=== PATIENT | male | born 1955 | race Caucasian/White ===

== ENCOUNTER 2017-08-26 15:46 | Emergency (ER) | payer OTHER, MEDICAID ==
[~2017-08-26] VITALS: Ht 182.9 cm; Wt 110.2 kg
[2017-08-26] MEDS ORDERED: HYDROmorphone inj. 0.5 MG/0.5 ML DISP.SYRIN IM ONE (16:45)
[2017-08-26] MEDS ORDERED: HYDROcodone/acetaminophen 10/325mg tab PO ONE (17:00)
[2017-08-26] MEDS ORDERED: HYDR-3965 PO (17:20)
[2017-08-26 17:49] VITALS: BP 133/68
[2017-08-27] MEDS ORDERED: PER10325T PO (17:44)
== END 2017-08-26 17:52 | disposition home or self-care (01) ==
LOC: ER 15:47
DX: S52.101A Unspecified fracture of upper end of right radius, initial encounter for closed fracture (principal); S52.201A Unspecified fracture of shaft of right ulna, initial encounter for closed fracture; I50.9 Heart failure, unspecified; J44.9 Chronic obstructive pulmonary disease, unspecified; F17.200 Nicotine dependence, unspecified, uncomplicated; Z88.0 Allergy status to penicillin; W22.8XXA Striking against or struck by other objects, initial encounter; Y93.89 Activity, other specified; Y92.89 Other specified places as the place of occurrence of the external cause; Y99.8 Other external cause status
CPT/HCPCS: 29105; 73060; 73070; 73090; 73110; 96372; 99284; A4565; J1170

== ENCOUNTER 2017-08-31 10:20 | Outpatient (CLI) | payer MEDICAID ==
[~2017-08-31] VITALS: Ht 185.4 cm; Wt 111.8 kg
[2017-08-31 10:20] VITALS: BP 118/82
[~2017-08-31 10:20] MED LIST: HYDR-3965 PO; PER10325T PO
== END 2017-08-31 11:00 | disposition home or self-care (01) ==
LOC: ORTHO 10:20
PROVIDERS: ATTEND Nurse Practitioner Family
DX: S52.391A Other fracture of shaft of radius, right arm, initial encounter for closed fracture (principal); S52.221A Displaced transverse fracture of shaft of right ulna, initial encounter for closed fracture; F41.9 Anxiety disorder, unspecified; H40.9 Unspecified glaucoma; I50.9 Heart failure, unspecified; J44.9 Chronic obstructive pulmonary disease, unspecified; F12.90 Cannabis use, unspecified, uncomplicated; F17.210 Nicotine dependence, cigarettes, uncomplicated; Z88.0 Allergy status to penicillin; Z56.0 Unemployment, unspecified; X58.XXXA Exposure to other specified factors, initial encounter; Y93.89 Activity, other specified; Y92.89 Other specified places as the place of occurrence of the external cause; Y99.8 Other external cause status
CPT/HCPCS: 99215

== ENCOUNTER 2017-09-16 14:12 | Outpatient (CLI) | payer MEDICAID ==
[~2017-09-16 14:12] MED LIST changes: +ALBU18HF2 INH; +FLUT1DIS INH
== END 2017-09-16 15:10 | disposition home or self-care (01) ==
LOC: ORTHO 14:12
PROVIDERS: ATTEND Nurse Practitioner Family
DX: S52.321D Displaced transverse fracture of shaft of right radius, subsequent encounter for closed fracture with routine healing (principal); S52.221D Displaced transverse fracture of shaft of right ulna, subsequent encounter for closed fracture with routine healing; J44.9 Chronic obstructive pulmonary disease, unspecified; F17.210 Nicotine dependence, cigarettes, uncomplicated; I50.9 Heart failure, unspecified; F12.90 Cannabis use, unspecified, uncomplicated; Z88.0 Allergy status to penicillin; Z56.0 Unemployment, unspecified; X58.XXXD Exposure to other specified factors, subsequent encounter
CPT/HCPCS: 29105; 99213

== ENCOUNTER 2017-09-23 10:51 | Outpatient (CLI) | payer MEDICAID ==
[2017-09-23 10:59] VITALS: BP 122/65
== END 2017-09-23 11:50 | disposition home or self-care (01) ==
LOC: ORTHO 10:51
PROVIDERS: ATTEND Nurse Practitioner Family
DX: S52.341 Displaced spiral fracture of shaft of radius, right arm (principal); S52.24 Spiral fracture of shaft of ulna; F17.210 Nicotine dependence, cigarettes, uncomplicated; I50.9 Heart failure, unspecified; J44.9 Chronic obstructive pulmonary disease, unspecified; Z88.0 Allergy status to penicillin; X58.XXXD Exposure to other specified factors, subsequent encounter
CPT/HCPCS: 29065; 99214; A4590; A6449

== ENCOUNTER 2017-10-03 23:54 | Inpatient (IN) | payer MEDICAID ==
[~2017-10-03] VITALS: Ht 185.4 cm; Wt 105.5 kg
[~2017-10-03 23:54] MED LIST changes: -HYDR-3965 PO; -PER10325T PO; +flumazenil 0.1 mg/ml inj. IV ONE
[2017-10-04] VITALS (18 sets, daily range): BP systolic 81–114; BP diastolic 51–73
[2017-10-04] MEDS ORDERED: ipratropium/albuterol 3ml nebule NEB ONE ×2 (01:20→04:00)
[2017-10-04] MEDS ORDERED: LORazepam 1 MG tablet PO ONE (01:20)
[2017-10-04 03:24] LABS: BASOPHILS # (AUTO) 0.1 X10'3 (0-0.2); BASOPHILS % (AUTO) 0.5 % (0-1); EOSINOPHILS % (AUTO) 0.3 % (0-6); HEMATOCRIT 47.9 % (42.0-52.0); HEMOGLOBIN 15.7 g/dl (14.0-17.9); LYMPHOCYTES # (AUTO) 1.4 X10'3 (1.1-4.8); LYMPHOCYTES % (AUTO) 7.7 % (21-51); MEAN CORPUSCULAR HEMOGLOBIN 28.9 PG (27.0-31.0); MEAN CORPUSCULAR HGB CONC 32.8 % (33.0-36.5); MEAN CORPUSCULAR VOLUME 88.1 FL (78-98); MEAN PLATELET VOLUME 7.7 FL (7.4-10.4); MONOCYTES # (AUTO) 0.8 X10'3 (0-0.9); MONOCYTES % (AUTO) 4.5 % (2-12); NEUTROPHILS # (AUTO) 15.7 X10'3 (1.8-7.7); PLATELET COUNT 356 X10'3 (140-440); RED BLOOD COUNT 5.43 X10'6 (4.70-6.10); RED CELL DISTRIBUTION WIDTH 15.6 % (11.5-14.5); WHITE BLOOD COUNT 18.1 X10'3 (4.5-11.0)
[2017-10-04 03:40] LABS: ALANINE AMINOTRANSFERASE 29 U/L (12-78); ALBUMIN 3.3 G/DL (3.4-5.0); ALBUMIN/GLOBULIN RATIO 0.8 (1.1-1.5); ALKALINE PHOSPHATASE 149 IU/L (46-116); ANION GAP 9 (8-16); ASPARTATE AMINO TRANSFERASE 16 U/L (10-37); BILIRUBIN,TOTAL 0.4 MG/DL (0.1-1.0); BLOOD UREA NITROGEN 21 MG/DL (7-18); BUN/CREATININE RATIO 17.9 (5.4-32.0); CHLORIDE 105 MMOL/L (99-107); CREATININE 1.17 MG/DL (0.60-1.10); GLUCOSE 101 MG/DL (70-104); POTASSIUM 3.9 MMOL/L (3.5-5.1); SODIUM 141 MMOL/L (135-145); TOTAL CARBON DIOXIDE 26.9 MMOL/L (24-32); TOTAL PROTEIN 7.6 G/DL (6.4-8.2); eGFR 63 ML/MIN
[2017-10-04] MEDS ORDERED: methylPREDNISolone sod succ 125mg/2ml vial IV ONE (04:00)
[2017-10-04] MEDS ORDERED: levoFLOXACIN-Levaquin 750MG/D5 150 ML IV ONE (04:00)
[2017-10-04] MEDS ORDERED: ondansetron/PF 4mg/2ml inj IV PRN ×2 (04:55→08:55)
[2017-10-04] MEDS ORDERED: potassium Cl 40MEQ/NS 500ml 500 ML IV PRN ×2 (04:55)
[2017-10-04] MEDS ORDERED: acetaminophen 325mg tablet PO PRN ×3 (04:55→08:55)
[2017-10-04] MEDS ORDERED: HYDROcodone/acetaminophen 5mg/325mg tablet PO PRN (04:55)
[2017-10-04] MEDS ORDERED: potassium Cl 20 mEq SR tablet PO PRN ×2 (04:55)
[2017-10-04] MEDS ORDERED: albuterol 2.5 MG/3 ML nebule NEB PRN (04:55)
[2017-10-04] MEDS ORDERED: LORazepam 2 mg/ml vial IV ONE ×2 (04:55→09:10)
[2017-10-04] MEDS ORDERED: flumazenil 0.1 mg/ml inj. IV ONE (05:30)
[2017-10-04 05:41] LABS: ABG BASE EXCESS -2.6 mmol/L (-2.0-3.0); ABG HCO3 27.7 mmol/L (22.0-26.0); ABG PCO2 (T) 73.7 mmHg (35.0-48.0); ABG PH (T) 7.193 (7.350-7.450); ABG PO2 (T) 92.1 mmHg (83-108); FCOHb 1.8 % (0.5-1.5); FLOW 6 L/min; FMetHb 0.3 % (0.3-1.12); RESPIRATORY RATE (OBSERVED) 8 b/min; TOTAL HEMOGLOBIN 15.9 G/dl (14.0-18.0)
[2017-10-04] MEDS: normal saline 1000ml 1,000 ML IV SCH (06:01)
[2017-10-04] MEDS: ipratropium/albuterol 3ml nebule NEB SCH ×5 (07:18→23:10)
[2017-10-04] MEDS: K and/or MAG REPLACEMENT MC SCH (08:00)
[2017-10-04] MEDS ORDERED: rocuronium 10mg/ml inj IV ONE (08:00)
[2017-10-04] MEDS ORDERED: etomidate 2mg/ml inj. ONE (08:00)
[2017-10-04 08:26] LABS: ABG BASE EXCESS 0.1 mmol/L (-2.0-3.0); ABG HCO3 27.2 mmol/L (22.0-26.0); ABG OXYGEN SATURATION 93.4 % (95-98); ABG PCO2 (T) 53.3 mmHg (35.0-48.0); ABG PH (T) 7.326 (7.350-7.450); ABG PO2 (T) 73.9 mmHg (83-108); ALLEN'S TEST Positive; FCOHb 1.8 % (0.5-1.5); FMetHb 0.1 % (0.3-1.12); FO2Hb 91.6 % (94-100); MINUTE VOLUME 14 L/min; PEEP 5 cm H2O; RESPIRATORY RATE 20 b/min; RESPIRATORY RATE (OBSERVED) 20 b/min; TIDAL VOLUME 600 mL; TOTAL HEMOGLOBIN 16.3 G/dl (14.0-18.0)
[2017-10-04] MEDS: methylPREDNISolone sod succ 125mg/2ml vial IV SCH ×2 (08:36→16:09)
[2017-10-04] MEDS: heparin, porcine 5000 units/ml vial SQ SCH ×2 (08:40→21:10)
[2017-10-04] MEDS: nicotine 21mg patch - 24 hr TD SCH (08:41)
[2017-10-04] MEDS ORDERED: magnesium hydroxide 30ml (MOM) UD suspension PO PRN (08:55)
[2017-10-04] MEDS ORDERED: metoclopramide 5 mg/ml inj IV PRN (08:55)
[2017-10-04] MEDS ORDERED: morphine 4 MG/ML inj SYRINge IV PRN ×2 (08:55)
[2017-10-04] MEDS ORDERED: ipratropium/albuterol 3ml nebule NEB PRN (08:55)
[2017-10-04 09:09] LABS: URINE AMPHETAMINE SCREEN POSITIVE (Neg); URINE BARBITUATE SCREEN NEGATIVE (Neg); URINE BENZODIAZEPINES SCREEN NEGATIVE (Neg); URINE CANNABINOID SCREEN NEGATIVE (Neg); URINE COCAINE SCREEN NEGATIVE (Neg); URINE METHADONE SCREEN NEGATIVE (Neg); URINE OPIATE SCREEN POSITIVE (Neg); URINE PHENCYCLIDINE SCREEN NEGATIVE (Neg)
[2017-10-04] MEDS ORDERED: phenytoin sod 50mg/ml 2ml vial IV SCH (09:10)
[2017-10-04] MEDS: propofol 1000mg/100ml bottle 100 ML IV PRN ×3 (09:13→23:14)
[2017-10-04 09:20] LABS: CLARITY,URINE SLIGHTLY CLOUDY (Clear); COLOR,URINE YELLOW (Yellow); GLUCOSE, URINE NEGATIVE (Neg); KETONES,URINE NEGATIVE (Neg); LEUKOCYTE ESTERASE ,URINE NEGATIVE (Neg); NITRITES, URINE NEGATIVE (Neg); OCCULT BLOOD,URINE TRACE-INTACT (Neg); PROTEIN,URINE NEGATIVE (Neg); UROBILINOGEN,URINE 0.2 E.U/dL (0.2-1.0)
[2017-10-04 09:26] LABS: UA COLLECTION TYPE FOLEY CATH
[2017-10-04 09:28] LABS: HYALINE CASTS 0-3 /LPF (NEGATIVE); MUCUS STRANDS FEW /LPF (Neg); RENAL CELLS, URINE FEW /HPF; SQUAMOUS EPITHELIAL CELL,UR FEW /LPF (FEW); TRANSITIONAL EPI CELLS,URINE FEW /HPF
[2017-10-04 09:29] LABS: BACTERIA,URINE NONE SEEN /HPF (Neg); RBC,URINE 0-2 /HPF (0-2); WBC,URINE 0-4 /HPF (0-4)
[2017-10-04] MEDS ORDERED: iohexol 300mg/ml 100ml inj. ONE (09:44)
[2017-10-04] MEDS ORDERED: NORMAL SALINE IV ONE (09:45)
[2017-10-04] MEDS ORDERED: PHENYTOIN SOD IV ONE (09:45)
[2017-10-04 09:47] LABS: MAGNESIUM 2.2 MG/DL (1.5-2.4)
[2017-10-04] MEDS ORDERED: NS IV ONE (10:00)
[2017-10-04] MEDS ORDERED: FOSPHENYTOIN IV ONE (10:00)
[2017-10-04] MEDS: budesonide 0.5mg/2ml UD nebule IH SCH ×2 (10:32→19:10)
[2017-10-04 11:47] LABS: INR 1.1 INR; PARTIAL THROMBOPLASTIN TIME 27 SECONDS (22-32); PROTHROMBIN TIME 11.3 SECONDS (9.0-12.0)
[2017-10-04] MEDS: CefTRIAXone 2gm/D5W 50ml 50 ML IV SCH (11:56)
[2017-10-04] MEDS: pantoprazole 40 MG vial IV SCH (11:57)
[2017-10-04] MEDS: enoxaparin 40mg/0.4ml syringe SUBCUT SCH (11:57)
[2017-10-04] MEDS: sodium chloride 0.45% 1,000 ML IV SCH ×2 (11:57→23:14)
[2017-10-04 15:34] LABS: GLUCOSE,CSF 101 MG/DL (40-75); TOTAL PROTEIN,CSF 79 MG/DL (30-60)
[2017-10-04 15:49] LABS: HIV ANTIBODY 1&2 RAPID NON-REACTIVE (Neg)
[2017-10-04 16:25] LABS: LYMPHOCYTES,CSF 3 % (40-80); MONOCYTES,CSF 1 % (15-45); NEUTRO,CSF 96 % (0-6)
[2017-10-04 16:30] LABS: APPEARANCE,CSF CLEAR; CSF RBC 40 /CU MM (0); CSF SUPERNATANT COLOR COLORLESS; CSF WBC CT 1 /CU MM (0-5); TUBE# COUNTED 4
[2017-10-04 16:32] LABS: APPEARANCE,CSF SL BLOODY
[2017-10-04 16:33] LABS: CSF SUPERNATANT COLOR PINK; TUBE# COUNTED 1
[2017-10-04 16:35] LABS: CSF RBC 28000 /CU MM (0); CSF WBC CT 53 /CU MM (0-5)
[2017-10-04] MEDS ORDERED: phenytoin sod ER 100mg capsule PO SCH (21:00)
[2017-10-05] VITALS (23 sets, daily range): BP systolic 90–119; BP diastolic 46–72
[2017-10-05] MEDS: phenytoin sod 50mg/ml 2ml vial IV SCH ×3 (00:11→16:27)
[2017-10-05] MEDS: methylPREDNISolone sod succ 125mg/2ml vial IV SCH ×3 (00:11→16:27)
[2017-10-05] MEDS: normal saline 1000ml 1,000 ML IV SCH ×2 (01:45→20:22)
[2017-10-05] MEDS: ipratropium/albuterol 3ml nebule NEB SCH ×6 (03:04→23:17)
[2017-10-05 03:19] LABS: BASOPHILS % (AUTO) 0.1 % (0-1); EOSINOPHILS # (AUTO) 0.2 X10'3 (0-0.9); EOSINOPHILS % (AUTO) 1.2 % (0-6); HEMATOCRIT 43.8 % (42.0-52.0); HEMOGLOBIN 14.6 g/dl (14.0-17.9); LYMPHOCYTES # (AUTO) 0.8 X10'3 (1.1-4.8); LYMPHOCYTES % (AUTO) 4.1 % (21-51); MEAN CORPUSCULAR HEMOGLOBIN 28.9 PG (27.0-31.0); MEAN CORPUSCULAR HGB CONC 33.3 % (33.0-36.5); MEAN CORPUSCULAR VOLUME 86.8 FL (78-98); MEAN PLATELET VOLUME 8.2 FL (7.4-10.4); MONOCYTES # (AUTO) 0.4 X10'3 (0-0.9); MONOCYTES % (AUTO) 2.1 % (2-12); NEUTROPHILS # (AUTO) 17.1 X10'3 (1.8-7.7); NEUTROPHILS % (AUTO) 92.5 % (42-75); PLATELET COUNT 294 X10'3 (140-440); RED BLOOD COUNT 5.05 X10'6 (4.70-6.10); RED CELL DISTRIBUTION WIDTH 15.2 % (11.5-14.5); WHITE BLOOD COUNT 18.5 X10'3 (4.5-11.0)
[2017-10-05 03:21] LABS: ABG BASE EXCESS 2.2 mmol/L (-2.0-3.0); ABG HCO3 26.8 mmol/L (22.0-26.0); ABG PCO2 (T) 41.9 mmHg (35.0-48.0); ABG PH (T) 7.425 (7.350-7.450); ABG PO2 (T) 64.7 mmHg (83-108); ALLEN'S TEST Positive; FCOHb 0.5 % (0.5-1.5); FO2Hb 91.5 % (94-100); MINUTE VOLUME 13 L/min; PATIENT TEMPERATURE 37.1; PEEP 5 cm H2O; RESPIRATORY RATE 20 b/min; RESPIRATORY RATE (OBSERVED) 20 b/min; TIDAL VOLUME 600 mL; TOTAL HEMOGLOBIN 15.1 G/dl (14.0-18.0)
[2017-10-05 03:32] LABS: INR 1.1 INR; PARTIAL THROMBOPLASTIN TIME 26 SECONDS (22-32); PROTHROMBIN TIME 11.2 SECONDS (9.0-12.0)
[2017-10-05 03:40] LABS: ALANINE AMINOTRANSFERASE 23 U/L (12-78); ALBUMIN 2.8 G/DL (3.4-5.0); ALBUMIN/GLOBULIN RATIO 0.7 (1.1-1.5); ALKALINE PHOSPHATASE 124 IU/L (46-116); ANION GAP 6 (8-16); ASPARTATE AMINO TRANSFERASE 11 U/L (10-37); BILIRUBIN,TOTAL 0.4 MG/DL (0.1-1.0); BLOOD UREA NITROGEN 21 MG/DL (7-18); BUN/CREATININE RATIO 18.8 (5.4-32.0); CHLORIDE 103 MMOL/L (99-107); CREATININE 1.12 MG/DL (0.60-1.10); GLUCOSE 152 MG/DL (70-104); MAGNESIUM 2.1 MG/DL (1.5-2.4); PHENYTOIN (DILANTIN) 7.1 UG/ML (10.0-20.0); PHOSPHORUS 4.1 MG/DL (2.3-4.5); POTASSIUM 4.5 MMOL/L (3.5-5.1); SODIUM 139 MMOL/L (135-145); TOTAL CARBON DIOXIDE 30.4 MMOL/L (24-32); TOTAL PROTEIN 6.7 G/DL (6.4-8.2); eGFR 67 ML/MIN
[2017-10-05 03:53] LABS: CHOL/HDL RATIO 3.6 (0.00-4.99); CHOLESTEROL 174 MG/DL (0-200); HDL CHOLESTEROL 49 MG/DL (35-60); LDL CHOLESTEROL 100 MG/DL (50-100); TRIGLYCERIDES 130 MG/DL (20-135)
[2017-10-05] MEDS: propofol 1000mg/100ml bottle 100 ML IV PRN ×2 (04:38→12:34)
[2017-10-05] MEDS: budesonide 0.5mg/2ml UD nebule IH SCH ×2 (07:00→19:16)
[2017-10-05] MEDS: K and/or MAG REPLACEMENT MC SCH (08:00)
[2017-10-05] MEDS: pantoprazole 40 MG vial IV SCH (08:13)
[2017-10-05] MEDS: CefTRIAXone 2gm/D5W 50ml 50 ML IV SCH (08:13)
[2017-10-05] MEDS: nicotine 21mg patch - 24 hr TD SCH (08:14)
[2017-10-05] MEDS: enoxaparin 40mg/0.4ml syringe SUBCUT SCH (08:14)
[2017-10-05 08:42] LABS: TROPONIN I 0.37 NG/ML (0.0-0.05)
[2017-10-05] MEDS: levoFLOXACIN-Levaquin 750MG/D5 150 ML IV SCH (09:53)
[2017-10-05] MEDS: sodium chloride 0.45% 1,000 ML IV SCH ×2 (11:33→20:22)
[2017-10-06] VITALS (24 sets, daily range): BP systolic 100–140; BP diastolic 60–90
[2017-10-06] MEDS: ipratropium/albuterol 3ml nebule NEB SCH ×6 (00:10→20:47)
[2017-10-06] MEDS: methylPREDNISolone sod succ 125mg/2ml vial IV SCH ×3 (00:17→17:33)
[2017-10-06] MEDS: phenytoin sod 50mg/ml 2ml vial IV SCH ×2 (00:17→08:21)
[2017-10-06 04:06] LABS: ABG BASE EXCESS 3.8 mmol/L (-2.0-3.0); ABG HCO3 28.6 mmol/L (22.0-26.0); ABG OXYGEN SATURATION 90.2 % (95-98); ABG PCO2 (T) 43.5 mmHg (35.0-48.0); ABG PH (T) 7.436 (7.350-7.450); ABG PO2 (T) 60.4 mmHg (83-108); ALLEN'S TEST Positive; FCOHb 0.3 % (0.5-1.5); FMetHb 0.2 % (0.3-1.12); FO2Hb 89.7 % (94-100); MINUTE VOLUME 9 L/min; PEEP 5 cm H2O; RESPIRATORY RATE 20 b/min; RESPIRATORY RATE (OBSERVED) 25 b/min; TIDAL VOLUME 600 mL; TOTAL HEMOGLOBIN 15.4 G/dl (14.0-18.0)
[2017-10-06 05:25] LABS: PARTIAL THROMBOPLASTIN TIME 22 SECONDS (22-32); PROTHROMBIN TIME 10.7 SECONDS (9.0-12.0)
[2017-10-06 05:56] LABS: ALANINE AMINOTRANSFERASE 19 U/L (12-78); ALBUMIN 2.7 G/DL (3.4-5.0); ALBUMIN/GLOBULIN RATIO 0.7 (1.1-1.5); ALKALINE PHOSPHATASE 118 IU/L (46-116); ANION GAP 9 (8-16); ASPARTATE AMINO TRANSFERASE 7 U/L (10-37); BILIRUBIN,TOTAL 0.3 MG/DL (0.1-1.0); BLOOD UREA NITROGEN 21 MG/DL (7-18); BUN/CREATININE RATIO 18.8 (5.4-32.0); CALCIUM 8.8 MG/DL (8.5-10.1); CHLORIDE 100 MMOL/L (99-107); CREATININE 1.12 MG/DL (0.60-1.10); GLUCOSE 160 MG/DL (70-104); MAGNESIUM 2.1 MG/DL (1.5-2.4); PHENYTOIN (DILANTIN) 5.9 UG/ML (10.0-20.0); PHOSPHORUS 3.7 MG/DL (2.3-4.5); POTASSIUM 4.2 MMOL/L (3.5-5.1); SODIUM 138 MMOL/L (135-145); TOTAL PROTEIN 6.7 G/DL (6.4-8.2); eGFR 67 ML/MIN
[2017-10-06 06:13] LABS: BASOPHILS % (AUTO) 0 % (0-1); EOSINOPHILS # (AUTO) 0.1 X10'3 (0-0.9); EOSINOPHILS % (AUTO) 0.7 % (0-6); HEMATOCRIT 44.1 % (42.0-52.0); HEMOGLOBIN 14.8 g/dl (14.0-17.9); LYMPHOCYTES # (AUTO) 0.7 X10'3 (1.1-4.8); LYMPHOCYTES % (AUTO) 4.3 % (21-51); MEAN CORPUSCULAR HGB CONC 33.5 % (33.0-36.5); MEAN CORPUSCULAR VOLUME 86.5 FL (78-98); MEAN PLATELET VOLUME 8.3 FL (7.4-10.4); MONOCYTES # (AUTO) 0.4 X10'3 (0-0.9); MONOCYTES % (AUTO) 2.7 % (2-12); NEUTROPHILS # (AUTO) 14.2 X10'3 (1.8-7.7); NEUTROPHILS % (AUTO) 92.3 % (42-75); PLATELET COUNT 253 X10'3 (140-440); RED CELL DISTRIBUTION WIDTH 15.9 % (11.5-14.5); WHITE BLOOD COUNT 15.4 X10'3 (4.5-11.0)
[2017-10-06] MEDS: propofol 1000mg/100ml bottle 100 ML IV PRN (06:36)
[2017-10-06] MEDS: budesonide 0.5mg/2ml UD nebule IH SCH ×2 (07:53→20:47)
[2017-10-06] MEDS: nicotine 21mg patch - 24 hr TD SCH (08:00)
[2017-10-06] MEDS: K and/or MAG REPLACEMENT MC SCH (08:00)
[2017-10-06] MEDS: pantoprazole 40 MG vial IV SCH (08:21)
[2017-10-06] MEDS: levoFLOXACIN-Levaquin 750MG/D5 150 ML IV SCH (08:22)
[2017-10-06] MEDS: CefTRIAXone 2gm/D5W 50ml 50 ML IV SCH (08:22)
[2017-10-06] MEDS: enoxaparin 40mg/0.4ml syringe SUBCUT SCH (08:22)
[2017-10-06] MEDS: sodium chloride 0.45% 1,000 ML IV SCH (17:33)
[2017-10-06] MEDS: normal saline 1000ml 1,000 ML IV SCH (17:50)
[2017-10-06] MEDS ORDERED: temazepam 15mg capsule PO ONE (20:30)
[2017-10-06] MEDS: lactobacillus rhamnosus 10,000 MMU CELLS/CAPSULE PO SCH (20:33)
[2017-10-07] VITALS (11 sets, daily range): BP systolic 118–141; BP diastolic 75–92
[2017-10-07] MEDS: methylPREDNISolone sod succ 125mg/2ml vial IV SCH ×2 (01:02→07:49)
[2017-10-07] MEDS: ipratropium/albuterol 3ml nebule NEB SCH ×3 (03:24→11:00)
[2017-10-07 05:25] LABS: BASOPHILS % (AUTO) 0.1 % (0-1); EOSINOPHILS % (AUTO) 0 % (0-6); HEMATOCRIT 47.9 % (42.0-52.0); HEMOGLOBIN 15.6 g/dl (14.0-17.9); LYMPHOCYTES # (AUTO) 0.5 X10'3 (1.1-4.8); LYMPHOCYTES % (AUTO) 4.2 % (21-51); MEAN CORPUSCULAR HEMOGLOBIN 28.5 PG (27.0-31.0); MEAN CORPUSCULAR HGB CONC 32.6 % (33.0-36.5); MEAN CORPUSCULAR VOLUME 87.5 FL (78-98); MEAN PLATELET VOLUME 8.7 FL (7.4-10.4); MONOCYTES # (AUTO) 0.3 X10'3 (0-0.9); MONOCYTES % (AUTO) 2.6 % (2-12); NEUTROPHILS # (AUTO) 11.9 X10'3 (1.8-7.7); NEUTROPHILS % (AUTO) 93.1 % (42-75); PLATELET COUNT 293 X10'3 (140-440); RED BLOOD COUNT 5.48 X10'6 (4.70-6.10); RED CELL DISTRIBUTION WIDTH 15.5 % (11.5-14.5); WHITE BLOOD COUNT 12.8 X10'3 (4.5-11.0)
[2017-10-07 05:38] LABS: PARTIAL THROMBOPLASTIN TIME 25 SECONDS (22-32); PROTHROMBIN TIME 10.5 SECONDS (9.0-12.0)
[2017-10-07 05:53] LABS: ALANINE AMINOTRANSFERASE 22 U/L (12-78); ALBUMIN 2.8 G/DL (3.4-5.0); ALBUMIN/GLOBULIN RATIO 0.7 (1.1-1.5); ALKALINE PHOSPHATASE 119 IU/L (46-116); ANION GAP 7 (8-16); ASPARTATE AMINO TRANSFERASE 11 U/L (10-37); BILIRUBIN,TOTAL 0.3 MG/DL (0.1-1.0); BLOOD UREA NITROGEN 20 MG/DL (7-18); BUN/CREATININE RATIO 20.6 (5.4-32.0); CALCIUM 8.7 MG/DL (8.5-10.1); CHLORIDE 101 MMOL/L (99-107); CREATININE 0.97 MG/DL (0.60-1.10); GLUCOSE 149 MG/DL (70-104); MAGNESIUM 2.1 MG/DL (1.5-2.4); PHENYTOIN (DILANTIN) 3.6 UG/ML (10.0-20.0); PHOSPHORUS 3.6 MG/DL (2.3-4.5); POTASSIUM 4.6 MMOL/L (3.5-5.1); PREALBUMIN 23.8 MG/DL (19-36); SODIUM 138 MMOL/L (135-145); TOTAL CARBON DIOXIDE 30.1 MMOL/L (24-32); TOTAL PROTEIN 7.1 G/DL (6.4-8.2); eGFR 79 ML/MIN
[2017-10-07] MEDS: budesonide 0.5mg/2ml UD nebule IH SCH (07:33)
[2017-10-07] MEDS: CefTRIAXone 2gm/D5W 50ml 50 ML IV SCH (07:48)
[2017-10-07] MEDS: lactobacillus rhamnosus 10,000 MMU CELLS/CAPSULE PO SCH (07:49)
[2017-10-07] MEDS: pantoprazole 40 MG vial IV SCH (07:49)
[2017-10-07] MEDS: nicotine 21mg patch - 24 hr TD SCH (07:50)
[2017-10-07] MEDS: enoxaparin 40mg/0.4ml syringe SUBCUT SCH (07:52)
[2017-10-07] MEDS: levoFLOXACIN-Levaquin 750MG/D5 150 ML IV SCH (08:11)
[2017-10-07] MEDS ORDERED: LEVO750T46 PO (11:16)
[2017-10-07 19:12] LABS: HSV 1 PCR Negative (Negative); HSV 2 PCR Negative (Negative)
[2017-10-08] MEDS ORDERED: levoFLOXACIN 750MG TABLET PO SCH (11:00)
[2017-10-08 13:37] LABS: CRYPTOCOCCUS ANTIGEN, CSF Negative (Negative)
[2017-10-09] MEDS ORDERED: methylnaltrexone br 12mg/0.6ml inj***SubQ only SQ SCH (08:00)
== END 2017-10-07 13:16 | disposition home or self-care (01) | DRG 133 ==
LOC: ER 23:55 → ED HOLD 10-04 04:52 → ICU 2S 10-04 10:16
PROVIDERS: ADMIT Family Medicine; ATTEND Internal Medicine Critical Care Medicine
PROC: 5A09357 Assistance with Respiratory Ventilation, Less than 24 Consecutive Hours, Continuous Positive Airway Pressure (ICD-10-PCS; principal; 2017-10-04)
PROC: 5A1945Z Respiratory Ventilation, 24-96 Consecutive Hours (ICD-10-PCS; 2017-10-04)
PROC: 0BH17EZ Insertion of Endotracheal Airway into Trachea, Via Natural or Artificial Opening (ICD-10-PCS; 2017-10-04)
PROC: 4A10X4Z Monitoring of Central Nervous Electrical Activity, External Approach (ICD-10-PCS; 2017-10-05)
DX: J96.22 Acute and chronic respiratory failure with hypercapnia (principal); G93.6 Cerebral edema; J14 Pneumonia due to Hemophilus influenzae; I50.9 Heart failure, unspecified; J84.9 Interstitial pulmonary disease, unspecified; Z99.81 Dependence on supplemental oxygen; J44.1 Chronic obstructive pulmonary disease with (acute) exacerbation; J96.91 Respiratory failure, unspecified with hypoxia; N28.9 Disorder of kidney and ureter, unspecified; F17.210 Nicotine dependence, cigarettes, uncomplicated; G25.3 Myoclonus; G47.30 Sleep apnea, unspecified; R63.3 Feeding difficulties; F12.90 Cannabis use, unspecified, uncomplicated; F41.9 Anxiety disorder, unspecified; T43.625A Adverse effect of amphetamines, initial encounter; J44.0 Chronic obstructive pulmonary disease with (acute) lower respiratory infection; J96.21 Acute and chronic respiratory failure with hypoxia; Z82.49 Family history of ischemic heart disease and other diseases of the circulatory system; Y92.89 Other specified places as the place of occurrence of the external cause; Z88.0 Allergy status to penicillin
CPT/HCPCS: 36415; 36600; 70470; 71045; 80053; 80061; 80185; 80305; 81001; 82803; 82945; 82948; 83605; 83735; 83880; 84100; 84134; 84145; 84157; 84443; 84484; 85018; 85025; 85610; 85730; 86703; 86788; 86789; 87015; 87040; 87070; 87077; 87102; 87185; 87502; 87503; 87529; 87899; 89051; 92616; 93005; 93306; 94002; 94003; 94640; 94660; 94668; 94760; 95816; 96365; 96375; 97116; 97161; 97530; 99291; A6213; A7015; C1758; C9113; J0696; J1165; J1644; J1650; J1956; J2060; J2704; J2930; J3490; J7030; J7626; Q9967

== ENCOUNTER 2017-10-13 10:30 | Outpatient (CLI) | payer MEDICAID ==
[~2017-10-13 10:30] MED LIST changes: +LEVO750T46 PO; -flumazenil 0.1 mg/ml inj. IV ONE
[2017-10-13 10:46] VITALS: BP 125/71
== END 2017-10-13 11:50 | disposition home or self-care (01) ==
LOC: ORTHO 10:30
PROVIDERS: ATTEND Nurse Practitioner Family
DX: S52.341 Displaced spiral fracture of shaft of radius, right arm (principal); S52.24 Spiral fracture of shaft of ulna; F17.210 Nicotine dependence, cigarettes, uncomplicated; G25.3 Myoclonus; I50.9 Heart failure, unspecified; J44.9 Chronic obstructive pulmonary disease, unspecified; F12.90 Cannabis use, unspecified, uncomplicated; Z88.0 Allergy status to penicillin; X58.XXXD Exposure to other specified factors, subsequent encounter
CPT/HCPCS: 29075; 73090; 99213; A4590

== ENCOUNTER 2017-11-03 10:27 | Outpatient (CLI) | payer MEDICAID ==
[2017-11-03 10:42] VITALS: BP 124/64
== END 2017-11-03 11:27 | disposition home or self-care (01) ==
LOC: ORTHO 10:27
PROVIDERS: ATTEND Nurse Practitioner Family
DX: S52.341 Displaced spiral fracture of shaft of radius, right arm (principal); S52.24 Spiral fracture of shaft of ulna; I50.9 Heart failure, unspecified; J44.9 Chronic obstructive pulmonary disease, unspecified; F17.210 Nicotine dependence, cigarettes, uncomplicated; G25.3 Myoclonus; Z88.0 Allergy status to penicillin; Z91.19 Patient's noncompliance with other medical treatment and regimen; X58.XXXD Exposure to other specified factors, subsequent encounter
CPT/HCPCS: 73090; 99213; A4590

== ENCOUNTER 2017-11-24 09:58 | Outpatient (CLI) | payer MEDICAID ==
[2017-11-24 09:55] VITALS: BP 134/85
== END 2017-11-24 10:40 | disposition home or self-care (01) ==
LOC: ORTHO 09:58
PROVIDERS: ATTEND Nurse Practitioner Family
DX: S52.341 Displaced spiral fracture of shaft of radius, right arm (principal); S52.24 Spiral fracture of shaft of ulna; J44.9 Chronic obstructive pulmonary disease, unspecified; F17.210 Nicotine dependence, cigarettes, uncomplicated; F12.90 Cannabis use, unspecified, uncomplicated; G25.3 Myoclonus; I50.9 Heart failure, unspecified; Z88.0 Allergy status to penicillin; X58.XXXD Exposure to other specified factors, subsequent encounter
CPT/HCPCS: 73090; 99212

== ENCOUNTER 2019-04-27 06:34 | Emergency (ER) | payer MEDICAID ==
[~2019-04-27] VITALS: Ht 182.9 cm; Wt 113.6 kg
[2019-04-27] MEDS ORDERED: normal saline 1000ML IV soln IVB ONE (06:50)
[2019-04-27] MEDS ORDERED: ipratropium 0.5 MG/2.5ML nebule IH ONE (06:50)
[2019-04-27] MEDS ORDERED: methylPREDNISolone sod succ 125mg/2ml vial IV ONE (06:50)
[2019-04-27] MEDS ORDERED: albuterol 2.5 MG/3 ML nebule CONTNEB PRN (06:50)
[2019-04-27 07:00] LABS: BASOPHILS % (AUTO) 0.3 % (0-1); EOSINOPHILS # (AUTO) 0.1 X10'3 (0-0.9); EOSINOPHILS % (AUTO) 0.4 % (0-6); HEMATOCRIT 46.5 % (42.0-52.0); HEMOGLOBIN 15.6 g/dl (14.0-17.9); LYMPHOCYTES # (AUTO) 0.6 X10'3 (1.1-4.8); LYMPHOCYTES % (AUTO) 4.4 % (21-51); MEAN CORPUSCULAR HEMOGLOBIN 30.4 PG (27.0-31.0); MEAN CORPUSCULAR HGB CONC 33.7 g/dL (33.0-36.5); MEAN CORPUSCULAR VOLUME 90.3 FL (78-98); MONOCYTES % (AUTO) 6.7 % (2-12); NEUTROPHILS # (AUTO) 12.9 X10'3 (1.8-7.7); NEUTROPHILS % (AUTO) 88.2 % (42-75); PLATELET COUNT 324 X10'3 (140-440); RED BLOOD COUNT 5.14 X10'6 (4.70-6.10); RED CELL DISTRIBUTION WIDTH 13.8 % (11.5-14.5); WHITE BLOOD COUNT 14.6 X10'3 (4.5-11.0)
[2019-04-27] MEDS ORDERED: TIOT4MIS5 IH (07:12)
[2019-04-27] MEDS ORDERED: BUDE10.2 INH (07:12)
[2019-04-27 07:16] LABS: ALANINE AMINOTRANSFERASE 36 U/L (12-78); ALBUMIN/GLOBULIN RATIO 0.6 (1.1-1.5); ALKALINE PHOSPHATASE 144 IU/L (46-116); ANION GAP 7 (8-16); ASPARTATE AMINO TRANSFERASE 23 U/L (10-37); BILIRUBIN,TOTAL 0.7 MG/DL (0.1-1.0); BLOOD UREA NITROGEN 11 MG/DL (7-18); BUN/CREATININE RATIO 10.2 (5.4-32.0); CALCIUM 8.8 MG/DL (8.5-10.1); CHLORIDE 98 MMOL/L (99-107); CREATININE 1.08 MG/DL (0.60-1.10); GLUCOSE 180 MG/DL (70-104); POTASSIUM 4.3 MMOL/L (3.5-5.1); SODIUM 134 MMOL/L (135-145); TOTAL CARBON DIOXIDE 28.9 MMOL/L (24-32); TOTAL PROTEIN 8.1 G/DL (6.4-8.2); eGFR 69 ML/MIN
[2019-04-27 07:40] LABS: ABG BASE EXCESS 1.6 mmol/L (-2.0-3.0); ABG HCO3 27.2 mmol/L (22.0-26.0); ABG OXYGEN SATURATION 93.3 % (95-98); ABG PCO2 (T) 45.9 mmHg (35.0-45.0); ABG PO2 (T) 64.8 mmHg (83-108); ALLEN'S TEST Positive; FCOHb 1.5 % (0.5-1.5); FLOW 5 L/min; FMetHb 0.1 % (0.3-1.12); FO2Hb 91.8 % (94-100)
[2019-04-27 08:13] VITALS: BP 117/96
== END 2019-04-27 08:10 | disposition left against medical advice (07) ==
LOC: ER 06:35
DX: J44.1 Chronic obstructive pulmonary disease with (acute) exacerbation (principal); R06.03 Acute respiratory distress; F15.90 Other stimulant use, unspecified, uncomplicated; I50.9 Heart failure, unspecified; G47.30 Sleep apnea, unspecified; F41.9 Anxiety disorder, unspecified; F17.200 Nicotine dependence, unspecified, uncomplicated; F12.90 Cannabis use, unspecified, uncomplicated; Z56.0 Unemployment, unspecified; Z88.0 Allergy status to penicillin; Z79.899 Other long term (current) drug therapy
CPT/HCPCS: 36415; 36600; 71045; 80053; 82803; 84484; 85018; 85025; 93005; 94640; 94644; 94760; 96374; 99285; J2930; J7040

== ENCOUNTER 2020-07-28 08:52 | Inpatient (IN) | payer MEDICAID ==
[~2020-07-28] VITALS: Ht 182.9 cm; Wt 113.6 kg
[~2020-07-28 08:52] MED LIST changes: +BUDE10.2 INH; -FLUT1DIS INH; -LEVO750T46 PO; +TIOT4MIS5 IH
[2020-07-28] MEDS ORDERED: albuterol 2.5 MG/3 ML nebule NEB ONE (09:00)
[2020-07-28] MEDS ORDERED: methylPREDNISolone sod succ 125mg/2ml vial IV ONE (09:00)
[2020-07-28] MEDS ORDERED: ipratropium/albuterol 3ml nebule NEB ONE (09:00)
--- NOTE | 2020-07-28 09:14 | NUR ---
RT at bedside for neb tx and bipap.
[2020-07-28 09:25] LABS: BASOPHILS # (AUTO) 0.1 X10'3 (0-0.2); BASOPHILS % (AUTO) 0.4 % (0-1); EOSINOPHILS # (AUTO) 0.1 X10'3 (0-0.9); EOSINOPHILS % (AUTO) 0.5 % (0-6); HEMATOCRIT 48.2 % (42.0-52.0); HEMOGLOBIN 15.8 g/dl (14.0-17.9); LYMPHOCYTES # (AUTO) 0.7 X10'3 (1.1-4.8); LYMPHOCYTES % (AUTO) 4.8 % (21-51); MEAN CORPUSCULAR HEMOGLOBIN 29.7 PG (27.0-31.0); MEAN CORPUSCULAR HGB CONC 32.8 g/dL (33.0-36.5); MEAN CORPUSCULAR VOLUME 90.5 FL (78-98); MEAN PLATELET VOLUME 8.2 FL (7.4-10.4); MONOCYTES # (AUTO) 0.9 X10'3 (0-0.9); MONOCYTES % (AUTO) 6.3 % (2-12); PLATELET COUNT 340 X10'3 (140-440); RED BLOOD COUNT 5.33 X10'6 (4.70-6.10); RED CELL DISTRIBUTION WIDTH 14.5 % (11.5-14.5); WHITE BLOOD COUNT 14.8 X10'3 (4.5-11.0)
[2020-07-28] MEDS ORDERED: levoFLOXACIN-Levaquin 750MG/D5 150 ML IV ONE (09:40)
--- NOTE | 2020-07-28 09:43 | NUR ---
NO G PER DR. HICKS AFTER PLACEMENT ON BIPAP Addendum: 07/28/20 at 0943 by Camille MCCULLOUGH Amended: Links added.
[2020-07-28 09:45] LABS: ALANINE AMINOTRANSFERASE 39 U/L (12-78); ALBUMIN 3.1 G/DL (3.4-5.0); ALBUMIN/GLOBULIN RATIO 0.6 (1.1-1.5); ALKALINE PHOSPHATASE 125 IU/L (46-116); ANION GAP 6 (8-16); ASPARTATE AMINO TRANSFERASE 29 U/L (10-37); BILIRUBIN,TOTAL 0.8 MG/DL (0.1-1.0); BLOOD UREA NITROGEN 16 MG/DL (7-18); BUN/CREATININE RATIO 13.8 (5.4-32.0); CHLORIDE 98 MMOL/L (99-107); CREATININE 1.16 MG/DL (0.60-1.10); GLUCOSE 152 MG/DL (70-104); POTASSIUM 4.4 MMOL/L (3.5-5.1); SODIUM 135 MMOL/L (135-145); TOTAL PROTEIN 8.5 G/DL (6.4-8.2); eGFR 63 ML/MIN
[2020-07-28 09:47] LABS: ETHANOL < 0.010 GM/DL (0.0-0.010)
[2020-07-28] MEDS ORDERED: hydrOXYzine 25 MG tablet PO ONE (10:15)
[2020-07-28] MEDS ORDERED: HYDR-3686 PO (10:36)
--- NOTE | 2020-07-28 10:46 | NUR ---
Pt removed from bipap and placed on NC at 3L which he is usually on at home. Pt feeling better. Pt states O2 sat usually in upper 80"s.
[2020-07-28 11:27] LABS: ABG BASE EXCESS 2.5 mmol/L (-2.0-2.0); ABG HCO3 28.4 mmol/L (22.0-26.0); ABG OXYGEN SATURATION 86.6 % (94-97); ABG PCO2 (T) 48.1 mmHg (35.0-48.0); ABG PO2 (T) 51.3 mmHg (75.0-100.0); ALLEN'S TEST POSITIVE; FLOW 3 L/min; FMetHb 0.1 % (0.0-1.5); FO2Hb 85.6 % (94-97); TOTAL HEMOGLOBIN 16.8 G/dl (14.0-18.0)
--- NOTE | 2020-07-28 12:06 | NUR ---
Pt O2 sat dipping to 87%, increased O2 to 5L, MD informed. Pt sat increased to 89-90%.
[2020-07-28] MEDS ORDERED: diphenhydrAMINE 25mg capsule PO PRN (12:25)
[2020-07-28] MEDS: normal saline 1000ml 1,000 ML IV SCH ×2 (12:25→22:28)
[2020-07-28] MEDS ORDERED: magnesium Cl slow-release 64mg tablet PO PRN (12:25)
[2020-07-28] MEDS ORDERED: bisacodyl 10mg suppository rectal RC PRN (12:25)
[2020-07-28] MEDS ORDERED: potassium Cl 20 mEq SR tablet PO PRN ×2 (12:25)
[2020-07-28] MEDS ORDERED: mag hydrox/Alum hydrox/simeth 30ml oral suspension PO PRN (12:25)
[2020-07-28] MEDS ORDERED: HYDROcodone/acetaminophen 10/325mg tab PO PRN (12:25)
[2020-07-28] MEDS ORDERED: magnesium 4gm in 100ml NS 100 ML IV PRN (12:25)
[2020-07-28] MEDS ORDERED: HYDROcodone/acetaminophen 5mg/325mg tablet PO PRN (12:25)
[2020-07-28] MEDS ORDERED: potassium Cl 40MEQ/1/2NS 520ml 520 ML IV PRN ×2 (12:25)
[2020-07-28] MEDS ORDERED: magnesium 2GM in 50ml NS 50 ML IV PRN (12:25)
[2020-07-28] MEDS ORDERED: acetaminophen 325mg tablet PO PRN ×2 (12:25)
[2020-07-28] MEDS ORDERED: magnesium hydroxide 30ml (MOM) UD suspension PO PRN (12:25)
[2020-07-28] MEDS ORDERED: morphine 2 MG/ML inj. syringe IV PRN ×2 (12:25)
[2020-07-28] MEDS ORDERED: acetaminophen 650mg rectal suppository RC PRN (12:25)
[2020-07-28] MEDS ORDERED: iohexol 350MG/ML 100ml bottle IV ONE (12:35)
[2020-07-28 12:57] LABS: HEMOGLOBIN A1C 6.4 % (4.5-6.2)
[2020-07-28 14:30] VITALS: BP 112/91
[2020-07-28 16:00] VITALS: BP 133/76
[2020-07-28] MEDS: methylPREDNISolone sod succ 125mg/2ml vial IV SCH ×2 (16:33→22:13)
[2020-07-28 17:30] VITALS: BP 139/81
[2020-07-28 18:00] VITALS: BP 139/81
--- NOTE | 2020-07-28 18:32 | NUR ---
Problems reprioritized. Patient report given, questions answered & plan of care reviewed with Annabella RODRÍGUEZ. Pt alert, oriented, and in no acute distress.
[2020-07-28] MEDS: ipratropium/albuterol 3ml nebule NEB SCH ×2 (18:55→23:09)
[2020-07-28] MEDS: lactobacillus rhamnosus 10,000 MMU CELLS/CAPSULE PO SCH (20:00)
[2020-07-28] MEDS: K and/or MAG REPLACEMENT MC SCH (20:00)
[2020-07-28] MEDS ORDERED: pantoprazole 40 MG vial IV ONE (20:50)
[2020-07-28 22:00] VITALS: BP 122/75
[2020-07-28] MEDS: heparin, porcine 5000 units/ml vial SQ SCH (22:08)
--- NOTE | 2020-07-28 22:25 | NUR ---
Respiratory Therapy Page Patient is ready to get onto his Bipap machine O2 sat continues to drop in the 80's. Denies SOB.
[2020-07-29 02:00] VITALS: BP 111/85
[2020-07-29] MEDS: methylPREDNISolone sod succ 125mg/2ml vial IV SCH ×4 (02:20→21:31)
[2020-07-29] MEDS: ipratropium/albuterol 3ml nebule NEB SCH ×6 (03:55→23:00)
[2020-07-29 07:00] VITALS: BP 133/73
[2020-07-29 07:11] LABS: ALANINE AMINOTRANSFERASE 34 U/L (12-78); ALBUMIN 2.7 G/DL (3.4-5.0); ALBUMIN/GLOBULIN RATIO 0.5 (1.1-1.5); ALKALINE PHOSPHATASE 116 IU/L (46-116); ANION GAP 5 (8-16); ASPARTATE AMINO TRANSFERASE 15 U/L (10-37); BILIRUBIN,TOTAL 0.3 MG/DL (0.1-1.0); BLOOD UREA NITROGEN 17 MG/DL (7-18); BUN/CREATININE RATIO 15.2 (5.4-32.0); CALCIUM 8.7 MG/DL (8.5-10.1); CHLORIDE 101 MMOL/L (99-107); CHOL/HDL RATIO 3.7 (0.00-4.99); CHOLESTEROL 164 MG/DL (0-200); CREATININE 1.12 MG/DL (0.60-1.10); GLUCOSE 161 MG/DL (70-104); HDL CHOLESTEROL 44 MG/DL (35-60); LDL CHOLESTEROL 111 MG/DL (50-100); MAGNESIUM 2.2 MG/DL (1.5-2.4); PHOSPHORUS 3.4 MG/DL (2.3-4.5); POTASSIUM 4.9 MMOL/L (3.5-5.1); SODIUM 136 MMOL/L (135-145); TOTAL CARBON DIOXIDE 30.1 MMOL/L (24-32); TOTAL PROTEIN 7.7 G/DL (6.4-8.2); TRIGLYCERIDES 69 MG/DL (20-135); eGFR 66 ML/MIN
[2020-07-29 07:12] LABS: BASOPHILS % (AUTO) 0.1 % (0-1); EOSINOPHILS % (AUTO) 0 % (0-6); HEMATOCRIT 46.3 % (42.0-52.0); HEMOGLOBIN 15.3 g/dl (14.0-17.9); LYMPHOCYTES # (AUTO) 0.7 X10'3 (1.1-4.8); LYMPHOCYTES % (AUTO) 6.8 % (21-51); MEAN CORPUSCULAR HEMOGLOBIN 29.7 PG (27.0-31.0); MEAN CORPUSCULAR HGB CONC 32.9 g/dL (33.0-36.5); MEAN CORPUSCULAR VOLUME 90.1 FL (78-98); MEAN PLATELET VOLUME 8.3 FL (7.4-10.4); MONOCYTES # (AUTO) 0.4 X10'3 (0-0.9); MONOCYTES % (AUTO) 3.4 % (2-12); NEUTROPHILS # (AUTO) 9.7 X10'3 (1.8-7.7); NEUTROPHILS % (AUTO) 89.7 % (42-75); PLATELET COUNT 332 X10'3 (140-440); RED BLOOD COUNT 5.14 X10'6 (4.70-6.10); RED CELL DISTRIBUTION WIDTH 14.4 % (11.5-14.5); WHITE BLOOD COUNT 10.8 X10'3 (4.5-11.0)
[2020-07-29] MEDS: K and/or MAG REPLACEMENT MC SCH ×2 (08:00→20:00)
[2020-07-29] MEDS: pantoprazole 40 MG vial IV SCH (08:02)
[2020-07-29] MEDS: levoFLOXACIN-Levaquin 750MG/D5 150 ML IV SCH (08:02)
[2020-07-29] MEDS: lactobacillus rhamnosus 10,000 MMU CELLS/CAPSULE PO SCH ×2 (08:02→21:33)
[2020-07-29] MEDS: heparin, porcine 5000 units/ml vial SQ SCH ×2 (08:03→21:32)
[2020-07-29] MEDS: normal saline 1000ml 1,000 ML IV SCH ×2 (08:05→18:25)
[2020-07-29 11:00] VITALS: BP 120/75
[2020-07-29 15:00] VITALS: BP 143/73
[2020-07-29 18:00] VITALS: BP 139/90
--- NOTE | 2020-07-29 18:37 | NUR ---
Problems reprioritized. Patient report given, questions answered & plan of care reviewed with Sonam RN.
[2020-07-29 22:00] VITALS: BP 142/73
[2020-07-29 22:02] LABS: CLARITY,URINE CLEAR (Clear); COLOR,URINE YELLOW (Yellow); GLUCOSE, URINE NEGATIVE (Neg); KETONES,URINE NEGATIVE (Neg); LEUKOCYTE ESTERASE ,URINE NEGATIVE (Neg); NITRITES, URINE NEGATIVE (Neg); OCCULT BLOOD,URINE NEGATIVE (Neg); PH,URINE 5.5 (4.8-8.0); PROTEIN,URINE NEGATIVE (Neg); UA COLLECTION TYPE CLN CATCH MIDSTREAM; UROBILINOGEN,URINE 0.2 E.U/dL (0.2-1.0)
[2020-07-29 22:16] LABS: URINE AMPHETAMINE SCREEN POSITIVE (Neg); URINE BARBITUATE SCREEN NEGATIVE (Neg); URINE BENZODIAZEPINES SCREEN NEGATIVE (Neg); URINE CANNABINOID SCREEN NEGATIVE (Neg); URINE COCAINE SCREEN NEGATIVE (Neg); URINE METHADONE SCREEN NEGATIVE (Neg); URINE OPIATE SCREEN POSITIVE (Neg); URINE PHENCYCLIDINE SCREEN NEGATIVE (Neg)
[2020-07-30] VITALS (7 sets, daily range): BP systolic 118–153; BP diastolic 47–89
[2020-07-30] MEDS: ipratropium/albuterol 3ml nebule NEB SCH ×6 (02:22→23:19)
[2020-07-30] MEDS: methylPREDNISolone sod succ 125mg/2ml vial IV SCH ×4 (03:08→19:42)
[2020-07-30] MEDS: normal saline 1000ml 1,000 ML IV SCH ×2 (03:11→14:47)
--- NOTE | 2020-07-30 06:25 | NUR ---
Patient in room PCU 3016. I have received report from Sonam RODRÍGUEZ and had the opportunity to ask questions and assume patient care.
[2020-07-30 06:33] LABS: BASOPHILS % (AUTO) 0.1 % (0-1); EOSINOPHILS % (AUTO) 0 % (0-6); HEMATOCRIT 44.2 % (42.0-52.0); HEMOGLOBIN 14.3 g/dl (14.0-17.9); LYMPHOCYTES # (AUTO) 0.7 X10'3 (1.1-4.8); LYMPHOCYTES % (AUTO) 4.9 % (21-51); MEAN CORPUSCULAR HEMOGLOBIN 29.4 PG (27.0-31.0); MEAN CORPUSCULAR HGB CONC 32.5 g/dL (33.0-36.5); MEAN CORPUSCULAR VOLUME 90.5 FL (78-98); MONOCYTES # (AUTO) 0.6 X10'3 (0-0.9); MONOCYTES % (AUTO) 4.2 % (2-12); NEUTROPHILS # (AUTO) 13.5 X10'3 (1.8-7.7); NEUTROPHILS % (AUTO) 90.8 % (42-75); PLATELET COUNT 359 X10'3 (140-440); RED BLOOD COUNT 4.89 X10'6 (4.70-6.10); RED CELL DISTRIBUTION WIDTH 14.5 % (11.5-14.5); WHITE BLOOD COUNT 14.9 X10'3 (4.5-11.0)
[2020-07-30 06:44] LABS: ALANINE AMINOTRANSFERASE 56 U/L (12-78); ALBUMIN 2.7 G/DL (3.4-5.0); ALBUMIN/GLOBULIN RATIO 0.6 (1.1-1.5); ALKALINE PHOSPHATASE 97 IU/L (46-116); ANION GAP 4 (8-16); ASPARTATE AMINO TRANSFERASE 36 U/L (10-37); BILIRUBIN,TOTAL 0.3 MG/DL (0.1-1.0); BLOOD UREA NITROGEN 20 MG/DL (7-18); BUN/CREATININE RATIO 16.8 (5.4-32.0); CHLORIDE 103 MMOL/L (99-107); CREATININE 1.19 MG/DL (0.60-1.10); GLUCOSE 156 MG/DL (70-104); MAGNESIUM 2.3 MG/DL (1.5-2.4); PHOSPHORUS 3.5 MG/DL (2.3-4.5); POTASSIUM 5.4 MMOL/L (3.5-5.1); SODIUM 139 MMOL/L (135-145); TOTAL CARBON DIOXIDE 31.7 MMOL/L (24-32); TOTAL PROTEIN 7.2 G/DL (6.4-8.2); eGFR 62 ML/MIN
[2020-07-30] MEDS: K and/or MAG REPLACEMENT MC SCH ×2 (08:00→20:00)
[2020-07-30] MEDS: levoFLOXACIN-Levaquin 750MG/D5 150 ML IV SCH (08:37)
[2020-07-30] MEDS: lactobacillus rhamnosus 10,000 MMU CELLS/CAPSULE PO SCH ×2 (08:37→19:42)
[2020-07-30] MEDS: pantoprazole 40 MG vial IV SCH (08:37)
[2020-07-30] MEDS: heparin, porcine 5000 units/ml vial SQ SCH ×2 (08:38→19:42)
[2020-07-30] MEDS ORDERED: LORazepam 2 mg/ml vial IV PRN (10:45)
--- NOTE | 2020-07-30 18:29 | NUR ---
Patient in room PCU 3016. I have received report from Ashlie RODRÍGUEZ and had the opportunity to ask questions and assume patient care.
--- NOTE | 2020-07-30 18:30 | NUR ---
Problems reprioritized. Patient report given, questions answered & plan of care reviewed with Levi RODRÍGUEZ.
[2020-07-31] MEDS: normal saline 1000ml 1,000 ML IV SCH ×2 (00:25→10:25)
[2020-07-31] MEDS: methylPREDNISolone sod succ 125mg/2ml vial IV SCH ×3 (01:46→14:08)
[2020-07-31 02:00] VITALS: BP 148/93
[2020-07-31] MEDS: ipratropium/albuterol 3ml nebule NEB SCH ×4 (02:58→15:03)
[2020-07-31 06:00] VITALS: BP_SYST 138; BP_SYST 141; BP_DIAS 73; BP_DIAS 82
[2020-07-31 06:41] LABS: BASOPHILS % (AUTO) 0.2 % (0-1); EOSINOPHILS % (AUTO) 0 % (0-6); HEMATOCRIT 47.2 % (42.0-52.0); HEMOGLOBIN 15.2 g/dl (14.0-17.9); LYMPHOCYTES # (AUTO) 0.6 X10'3 (1.1-4.8); LYMPHOCYTES % (AUTO) 5.4 % (21-51); MEAN CORPUSCULAR HEMOGLOBIN 29.1 PG (27.0-31.0); MEAN CORPUSCULAR HGB CONC 32.3 g/dL (33.0-36.5); MEAN CORPUSCULAR VOLUME 90.3 FL (78-98); MEAN PLATELET VOLUME 8.1 FL (7.4-10.4); MONOCYTES # (AUTO) 0.5 X10'3 (0-0.9); MONOCYTES % (AUTO) 4.4 % (2-12); NEUTROPHILS # (AUTO) 10.1 X10'3 (1.8-7.7); PLATELET COUNT 341 X10'3 (140-440); RED BLOOD COUNT 5.23 X10'6 (4.70-6.10); RED CELL DISTRIBUTION WIDTH 14.5 % (11.5-14.5); WHITE BLOOD COUNT 11.2 X10'3 (4.5-11.0)
[2020-07-31 07:05] LABS: ALANINE AMINOTRANSFERASE 44 U/L (12-78); ALBUMIN 2.7 G/DL (3.4-5.0); ALBUMIN/GLOBULIN RATIO 0.6 (1.1-1.5); ALKALINE PHOSPHATASE 94 IU/L (46-116); ANION GAP 4 (8-16); ASPARTATE AMINO TRANSFERASE 15 U/L (10-37); BILIRUBIN,TOTAL 0.3 MG/DL (0.1-1.0); BLOOD UREA NITROGEN 21 MG/DL (7-18); BUN/CREATININE RATIO 18.9 (5.4-32.0); CALCIUM 8.8 MG/DL (8.5-10.1); CHLORIDE 101 MMOL/L (99-107); CREATININE 1.11 MG/DL (0.60-1.10); GLUCOSE 141 MG/DL (70-104); MAGNESIUM 2.3 MG/DL (1.5-2.4); PHOSPHORUS 3.9 MG/DL (2.3-4.5); POTASSIUM 5.2 MMOL/L (3.5-5.1); SODIUM 138 MMOL/L (135-145); TOTAL CARBON DIOXIDE 32.9 MMOL/L (24-32); TOTAL PROTEIN 7.2 G/DL (6.4-8.2); eGFR 67 ML/MIN
[2020-07-31] MEDS: lactobacillus rhamnosus 10,000 MMU CELLS/CAPSULE PO SCH (07:22)
[2020-07-31] MEDS: levoFLOXACIN-Levaquin 750MG/D5 150 ML IV SCH (07:22)
[2020-07-31] MEDS: pantoprazole 40 MG vial IV SCH (07:22)
[2020-07-31] MEDS: heparin, porcine 5000 units/ml vial SQ SCH (07:29)
[2020-07-31] MEDS: K and/or MAG REPLACEMENT MC SCH (07:29)
[2020-07-31 11:00] VITALS: BP 141/73
[2020-07-31] MEDS ORDERED: sodium polystyrene sulfonate 15gm/60ml oral suspension PO ONE (12:30)
--- NOTE | 2020-07-31 13:17 | NUR ---
pts potassium level came back at 5.2 this morning. MD ordered x1 kayexalate. 15mg oral solution. Pt to discharge later this afternoon
--- NOTE | 2020-07-31 13:19 | NUR ---
Problems reprioritized. Patient report given, questions answered & plan of care reviewed with Bobbi RODRÍGUEZ.
--- NOTE | 2020-07-31 13:30 | NUR ---
Patient in room PCU 3016. I have received report from Levi RODRÍGUEZ and had the opportunity to ask questions and assume patient care.
[2020-07-31] MEDS ORDERED: PANT40TA54 PO (14:22)
[2020-07-31] MEDS ORDERED: LACT1CAP26 PO (14:22)
[2020-07-31] MEDS ORDERED: PRED10TA23 PO (14:22)
[2020-07-31] MEDS ORDERED: LEVO500T89 PO (14:22)
[2020-07-31] MEDS ORDERED: BENZ-16 PO (14:22)
[2020-07-31] MEDS ORDERED: DILT180C66 PO (14:22)
[2020-07-31 15:00] VITALS: BP 128/78
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
== END 2020-07-31 16:55 | disposition home or self-care (01) | DRG 140 ==
LOC: ER 08:52 → ED HOLD 12:25 → EDBEDREQ 13:03 → PCU 3S 14:05
PROVIDERS: ADMIT Family Medicine; ATTEND Family Medicine
PROC: 5A09357 Assistance with Respiratory Ventilation, Less than 24 Consecutive Hours, Continuous Positive Airway Pressure (ICD-10-PCS; principal; 2020-07-28)
PROC: B32T1ZZ Computerized Tomography (CT Scan) of Left Pulmonary Artery using Low Osmolar Contrast (ICD-10-PCS; 2020-07-28)
PROC: B3201ZZ Computerized Tomography (CT Scan) of Thoracic Aorta using Low Osmolar Contrast (ICD-10-PCS; 2020-07-28)
PROC: B32S1ZZ Computerized Tomography (CT Scan) of Right Pulmonary Artery using Low Osmolar Contrast (ICD-10-PCS; 2020-07-28)
PROC: 5A09357 Assistance with Respiratory Ventilation, Less than 24 Consecutive Hours, Continuous Positive Airway Pressure (ICD-10-PCS; 2020-07-29)
PROC: 5A09357 Assistance with Respiratory Ventilation, Less than 24 Consecutive Hours, Continuous Positive Airway Pressure (ICD-10-PCS; 2020-07-30)
PROC: 5A09357 Assistance with Respiratory Ventilation, Less than 24 Consecutive Hours, Continuous Positive Airway Pressure (ICD-10-PCS; 2020-07-31)
DX: J44.0 Chronic obstructive pulmonary disease with (acute) lower respiratory infection (principal); J20.9 Acute bronchitis, unspecified; J96.20 Acute and chronic respiratory failure, unspecified whether with hypoxia or hypercapnia; J44.1 Chronic obstructive pulmonary disease with (acute) exacerbation; F14.90 Cocaine use, unspecified, uncomplicated; F15.20 Other stimulant dependence, uncomplicated; F17.210 Nicotine dependence, cigarettes, uncomplicated; I50.9 Heart failure, unspecified; Z20.822 Contact with and (suspected) exposure to COVID-19; E87.5 Hyperkalemia; E87.2 Acidosis; F12.90 Cannabis use, unspecified, uncomplicated; F41.9 Anxiety disorder, unspecified; G47.30 Sleep apnea, unspecified; Z91.19 Patient's noncompliance with other medical treatment and regimen; Z88.0 Allergy status to penicillin; Z99.81 Dependence on supplemental oxygen; Z71.6 Tobacco abuse counseling; Z71.51 Drug abuse counseling and surveillance of drug abuser
CPT/HCPCS: 36415; 36600; 71045; 71275; 80053; 80061; 80305; 80320; 81003; 82803; 83036; 83605; 83735; 83880; 84100; 84145; 84484; 85018; 85025; 87040; 87070; 87081; 87635; 93005; 93308; 94640; 94660; 94760; 96365; 97116; 97161; 97530; 99285; C9113; C9803; G0378; J1644; J1956; J2060; J2930; J7030; Q0177; Q9967

== ENCOUNTER → 2021-10-24 16:11 | Emergency (ER) | payer MEDICAID ==
[~2021-10-24] VITALS: Ht 182.9 cm; Wt 136.4 kg
[~2021-10-24 16:11] MED LIST changes: +BEBTELOVIMAB 175 MG/2 ML VIAL IV ONE; +BENZ-16 PO; +HYDR-3686 PO; +LACT1CAP26 PO; +PANT40TA54 PO; +iohexol 350MG/ML 100ml bottle IV ONE
[2021-10-24 17:41] LABS: BASOPHILS # (AUTO) 0.1 X10'3 (0-0.2); BASOPHILS % (AUTO) 0.6 % (0-1); EOSINOPHILS # (AUTO) 0.4 X10'3 (0-0.9); EOSINOPHILS % (AUTO) 3.4 % (0-6); HEMATOCRIT 51.5 % (42.0-52.0); HEMOGLOBIN 16.8 g/dl (14.0-17.9); LYMPHOCYTES # (AUTO) 1.5 X10'3 (1.1-4.8); LYMPHOCYTES % (AUTO) 13.9 % (21-51); MEAN CORPUSCULAR HEMOGLOBIN 28.7 PG (27.0-31.0); MEAN CORPUSCULAR HGB CONC 32.7 g/dL (33.0-36.5); MEAN CORPUSCULAR VOLUME 87.7 FL (78-98); MEAN PLATELET VOLUME 7.9 FL (7.4-10.4); MONOCYTES # (AUTO) 0.8 X10'3 (0-0.9); MONOCYTES % (AUTO) 7.6 % (2-12); NEUTROPHILS # (AUTO) 7.9 X10'3 (1.8-7.7); NEUTROPHILS % (AUTO) 74.5 % (42-75); PLATELET COUNT 319 X10'3 (140-440); RED BLOOD COUNT 5.87 X10'6 (4.70-6.10); RED CELL DISTRIBUTION WIDTH 15.2 % (11.5-14.5); WHITE BLOOD COUNT 10.6 X10'3 (4.5-11.0)
[2021-10-24 17:49] LABS: ALANINE AMINOTRANSFERASE 24 U/L (12-78); ALBUMIN 3.3 G/DL (3.4-5.0); ALBUMIN/GLOBULIN RATIO 0.8 (1.1-1.5); ALKALINE PHOSPHATASE 119 IU/L (46-116); ANION GAP 5 (8-16); ASPARTATE AMINO TRANSFERASE 15 U/L (10-37); BILIRUBIN,TOTAL 0.4 MG/DL (0.1-1.0); BLOOD UREA NITROGEN 16 MG/DL (7-18); BUN/CREATININE RATIO 13.3 (5.4-32.0); CALCIUM 8.9 MG/DL (8.5-10.1); CHLORIDE 104 MMOL/L (99-107); GLUCOSE 106 MG/DL (70-104); POTASSIUM 4.1 MMOL/L (3.5-5.1); SODIUM 139 MMOL/L (135-145); TOTAL CARBON DIOXIDE 30.1 MMOL/L (24-32); TOTAL PROTEIN 7.6 G/DL (6.4-8.2); eGFR 61 ML/MIN
[2021-10-24 18:50] VITALS: BP 148/90
== END | disposition home or self-care (01) ==
LOC: ER 16:11
DX: U07.1 COVID-19 (principal); R05.9 Cough, unspecified; R06.82 Tachypnea, not elsewhere classified; I50.9 Heart failure, unspecified; J44.9 Chronic obstructive pulmonary disease, unspecified; F41.9 Anxiety disorder, unspecified; F17.200 Nicotine dependence, unspecified, uncomplicated; F12.90 Cannabis use, unspecified, uncomplicated; F15.90 Other stimulant use, unspecified, uncomplicated; Z56.0 Unemployment, unspecified; Z88.0 Allergy status to penicillin; Z79.899 Other long term (current) drug therapy
CPT/HCPCS: 36415; 71275; 80053; 85025; 99285; M0222; Q0222; Q9967; 96374

== ENCOUNTER 2022-01-25 00:02 | Inpatient (IN) | payer BC, MEDICAID ==
[~2022-01-25] VITALS: Ht 185.4 cm; Wt 136.4 kg
[~2022-01-25 00:02] MED LIST changes: -BEBTELOVIMAB 175 MG/2 ML VIAL IV ONE; -iohexol 350MG/ML 100ml bottle IV ONE
--- NOTE | 2022-01-25 00:28 | NUR ---
PT SPO2 AT 67% RA. PLACED ON 6 LITERS OF O2 VIA NC. NOTIFIED
[2022-01-25] MEDS ORDERED: ipratropium/albuterol 3ml nebule NEB ONE (00:30)
--- NOTE | 2022-01-25 00:35 | NUR ---
PT SPO2 AT 80% WITH NC. PLACED ON NONREBREATHER 15 LITERS. AWARE. RT TO GIVE NEB TX.
[2022-01-25] MEDS ORDERED: dexamethasone sod phosphate 10mg/ml inj IV STA (01:35)
[2022-01-25 02:32] LABS: BASOPHILS % (AUTO) 0.3 % (0-1); EOSINOPHILS % (AUTO) 0.1 % (0-6); HEMATOCRIT 52.1 % (42.0-52.0); HEMOGLOBIN 17.4 g/dl (14.0-17.9); LYMPHOCYTES # (AUTO) 0.7 X10'3 (1.1-4.8); LYMPHOCYTES % (AUTO) 7.9 % (21-51); MEAN CORPUSCULAR HEMOGLOBIN 30.1 PG (27.0-31.0); MEAN CORPUSCULAR HGB CONC 33.3 g/dL (33.0-36.5); MEAN CORPUSCULAR VOLUME 90.5 FL (78-98); MEAN PLATELET VOLUME 8.2 FL (7.4-10.4); MONOCYTES # (AUTO) 0.7 X10'3 (0-0.9); MONOCYTES % (AUTO) 7.8 % (2-12); NEUTROPHILS # (AUTO) 7.5 X10'3 (1.8-7.7); NEUTROPHILS % (AUTO) 83.9 % (42-75); PLATELET COUNT 231 X10'3 (140-440); RED BLOOD COUNT 5.76 X10'6 (4.70-6.10); RED CELL DISTRIBUTION WIDTH 15.2 % (11.5-14.5)
[2022-01-25 02:53] LABS: ALANINE AMINOTRANSFERASE 25 U/L (12-78); ALBUMIN 3.1 G/DL (3.4-5.0); ALBUMIN/GLOBULIN RATIO 0.7 (1.1-1.5); ALKALINE PHOSPHATASE 92 IU/L (46-116); ANION GAP 5 (8-16); ASPARTATE AMINO TRANSFERASE 21 U/L (10-37); BILIRUBIN,TOTAL 0.5 MG/DL (0.1-1.0); BLOOD UREA NITROGEN 13 MG/DL (7-18); BUN/CREATININE RATIO 10.2 (5.4-32.0); CALCIUM 8.2 MG/DL (8.5-10.1); CHLORIDE 101 MMOL/L (99-107); CREATININE 1.27 MG/DL (0.60-1.10); GLUCOSE 135 MG/DL (70-104); POTASSIUM 4.8 MMOL/L (3.5-5.1); SODIUM 136 MMOL/L (135-145); TOTAL CARBON DIOXIDE 29.6 MMOL/L (24-32); TOTAL PROTEIN 7.3 G/DL (6.4-8.2); eGFR 57 ML/MIN
--- NOTE | 2022-01-25 03:45 | NUR ---
PT DEMANDED TO LEAVE. EXPLAIN TO PT THE RISKS OF LEAVING WITHOUT OXYGEN PT IS HYPOXIC. PT CONT TO VERBELIZED WANTING TO LEAVE. NOTIIFED AND SPOKE TO PT. WAS INFORMED OF THE RISKS OF LEAVIN AND THE BENIFIS OF STAYING IN HOSPITAL. PT CONT TO VERBELIZED THAT HE WANTED TO LEAVE. INFORMED PT THAT HE WILL NEED TO LEAVE AMA AND BE ABLE TO WALK OUT OF ED WITHOUT OXYGEN AND HAVE FAMILY TERRAZZO INSTALLER PT. PT AGREED. PT's FAMILY CALLED THEY VOICED THEIR CONCERN OF PT LEAVING. THEY WISH PT TO STAY IN HOSPITAL THEY STATED THAT THEY ARE AFRAID PT WILL STOP BREATHING AT HOME. FAMILY SPOKE TO PT ON PHONE. PT ARGUED WITH FAMILY USING FOUL LANGUAGE. FAMILY TOLD PT THAT THEY WERE NOT GOING TO PICK HIM UP AND ALY HE NEEDE TO STAY IN THE HOSPITAL. PT AGRRED TO STAY. WAS PLACED ON NONREBREATHER SPO2 DROPPPED TO 67%. IMPROVED TO 95% WITH 15 LITERS. NOTTIFIED THAT PT WILL BE STAYING.
[2022-01-25] MEDS ORDERED: ondansetron/PF 4mg/2ml inj IV PRN (07:25)
[2022-01-25] MEDS ORDERED: HYDROcodone/acetaminophen 10/325mg tab PO PRN (07:25)
[2022-01-25] MEDS ORDERED: morphine 2 MG/ML inj. syringe IV PRN ×2 (07:25)
[2022-01-25] MEDS ORDERED: furosemide 10 MG/1 ML 10ml inj IV ONE (07:25)
[2022-01-25] MEDS ORDERED: mag hydrox/Alum hydrox/simeth 30ml oral suspension PO PRN (07:25)
[2022-01-25] MEDS ORDERED: acetaminophen 325mg tablet PO PRN ×2 (07:25)
--- NOTE | 2022-01-25 07:29 | NUR ---
PATIENT PLACED ON O2 PER NC AT 6LPM. PATIENT DE-SAT TO 87% AND DIAPHORETIC. ER MD NOTIFIED OF PATIENT'S INTOLERANCE TO NC. VERBAL ORDER FOR BIPAP/CPAP.
[2022-01-25] MEDS: docusate sod 100mg capsule PO SCH ×2 (08:00→19:46)
[2022-01-25 09:00] LABS: D-DIMER 1.11 MG/L FEU (0-0.50)
[2022-01-25 09:06] LABS: C-REACTIVE PROTEIN 10.57 MG/DL (0.0-0.5)
--- NOTE | 2022-01-25 09:30 | NUR ---
PATIENT TOLERATING BIPAP VERY WELL WITH O2 SATS 96%.
[2022-01-25] MEDS: enoxaparin 40mg/0.4ml syringe SUBCUT SCH (09:37)
[2022-01-25] MEDS: dexamethasone inj 6 MG in dextrose 5%-water 50ml 50 ML IV SCH ×2 (09:38→19:43)
[2022-01-25 09:44] LABS: ABG BASE EXCESS 0.7 mmol/L (-2.0-2.0); ABG HCO3 29.1 mmol/L (22.0-26.0); ABG OXYGEN SATURATION 95.7 % (94-97); ABG PCO2 (T) 59.8 mmHg (35.0-48.0); ABG PO2 (T) 85.4 mmHg (75.0-100.0); ALLEN'S TEST POSITIVE; FCOHb 0.2 % (0.0-3.9); FMetHb 0.5 % (0.0-1.5); RESPIRATORY RATE 10 b/min; TIDAL VOLUME 537 mL; TOTAL HEMOGLOBIN 19.5 G/dl (14.0-18.0)
[2022-01-25] MEDS ORDERED: REMDESIVIR INJ 200 MG in normal saline 100ml IV soln 100 ML IV ONE (10:45)
[2022-01-25] MEDS: CefTRIAXone/D5W-Rocephin 1gm 50 ML IV SCH (12:26)
--- NOTE | 2022-01-25 12:31 | NUR ---
EM THURMAN (SON) #[phone] IF PT TRIES TO AMA GIVE HIM A CALL.
--- NOTE | 2022-01-25 13:13 | NUR ---
SITTING UP ON THE GURNEY, EATING LUNCH. O2 NC AT 8LPM INTACT. O2 SATS 87-88%. PATIENT STATES THIS IS HIS BASELINE O2 SAT.
--- NOTE | 2022-01-25 13:59 | NUR ---
PATIENT IS NOW ON HIGH FLOW HUMIDIFIED O2 AT 12 LPM. O2 SATS 91%. SITTING UP AT THE BEDSIDE. ISOLATION MAINTAINED.
[2022-01-25] MEDS ORDERED: TIOT4MIS2 INH (16:16)
[2022-01-25] MEDS ORDERED: LACT1CAP74 PO (16:21)
[2022-01-25] MEDS ORDERED: PANT-47 PO (16:21)
[2022-01-25] MEDS: hydrOXYzine 25 MG tablet PO PRN (19:38)
[2022-01-25] MEDS: furosemide 40mg/4ml inj IV SCH (19:45)
[2022-01-25] MEDS: lactobacillus rhamnosus 10,000 MMU CELLS/CAPSULE PO SCH (19:46)
[2022-01-25] MEDS: budesonide 0.5mg/2ml UD nebule IH SCH ×2 (20:03→21:00)
--- NOTE | 2022-01-26 03:56 | NUR ---
Pt is de-satting into the 70's while sleeping. Respiratory notified.
[2022-01-26 07:12] LABS: BASOPHILS % (AUTO) 0.1 % (0-1); EOSINOPHILS % (AUTO) 0.1 % (0-6); HEMATOCRIT 52.4 % (42.0-52.0); HEMOGLOBIN 17.1 g/dl (14.0-17.9); LYMPHOCYTES # (AUTO) 0.8 X10'3 (1.1-4.8); LYMPHOCYTES % (AUTO) 8.7 % (21-51); MEAN CORPUSCULAR HEMOGLOBIN 30.1 PG (27.0-31.0); MEAN CORPUSCULAR HGB CONC 32.7 g/dL (33.0-36.5); MEAN CORPUSCULAR VOLUME 92.1 FL (78-98); MEAN PLATELET VOLUME 8.6 FL (7.4-10.4); MONOCYTES % (AUTO) 10.2 % (2-12); NEUTROPHILS # (AUTO) 7.9 X10'3 (1.8-7.7); NEUTROPHILS % (AUTO) 80.9 % (42-75); PLATELET COUNT 222 X10'3 (140-440); RED BLOOD COUNT 5.68 X10'6 (4.70-6.10); RED CELL DISTRIBUTION WIDTH 15.3 % (11.5-14.5); WHITE BLOOD COUNT 9.7 X10'3 (4.5-11.0)
[2022-01-26 07:28] LABS: ALBUMIN 2.8 G/DL (3.4-5.0); ANION GAP 8 (8-16); BLOOD UREA NITROGEN 24 MG/DL (7-18); BUN/CREATININE RATIO 19.7 (5.4-32.0); C-REACTIVE PROTEIN 10.07 MG/DL (0.0-0.5); CALCIUM 8.4 MG/DL (8.5-10.1); CHLORIDE 101 MMOL/L (99-107); CREATININE 1.22 MG/DL (0.60-1.10); GLUCOSE 143 MG/DL (70-104); LACTATE DEHYDROGENASE 325 U/L (85-227); POTASSIUM 4.8 MMOL/L (3.5-5.1); SODIUM 137 MMOL/L (135-145); TOTAL CARBON DIOXIDE 28.4 MMOL/L (24-32); eGFR 59 ML/MIN
[2022-01-26] MEDS: pantoprazole 40mg Tablet.DR PO SCH (08:00)
[2022-01-26] MEDS: lactobacillus rhamnosus 10,000 MMU CELLS/CAPSULE PO SCH ×3 (08:00→20:09)
[2022-01-26] MEDS: docusate sod 100mg capsule PO SCH ×2 (08:00→20:09)
[2022-01-26] MEDS: budesonide 0.5mg/2ml UD nebule IH SCH ×2 (08:05→20:16)
[2022-01-26] MEDS: ipratropium/albuterol 3ml nebule NEB SCH ×4 (08:05→20:16)
--- NOTE | 2022-01-26 08:31 | NUR ---
patient not able to tolerate po meds at this time. on bipap
[2022-01-26 08:45] LABS: D-DIMER 0.72 MG/L FEU (0-0.50)
[2022-01-26] MEDS: dexamethasone sod phosphate 4mg/ml inj. IV SCH ×2 (08:56→20:09)
[2022-01-26] MEDS: furosemide 40mg/4ml inj IV SCH ×2 (08:56→20:09)
[2022-01-26] MEDS: CefTRIAXone/D5W-Rocephin 1gm 50 ML IV SCH (08:56)
[2022-01-26] MEDS: enoxaparin 40mg/0.4ml syringe SUBCUT SCH (08:57)
--- NOTE | 2022-01-26 09:47 | NUR ---
patient pulled out his iv, additional IV obtained to r domo
--- NOTE | 2022-01-26 09:47 | NUR ---
patient on high flow NC
[2022-01-26] MEDS: REMDESIVIR INJ 100 MG in normal saline 100ml IV soln 100 ML IV SCH (10:08)
[2022-01-26] MEDS: hydrOXYzine 25 MG tablet PO PRN (11:55)
[2022-01-26] MEDS: ALBUTEROL INHALER 1 PUFF/90 MCG INHALation IH PRN (12:52)
--- NOTE | 2022-01-26 14:00 | NUR ---
[place] patient fall in ER bed 15, When in to check on patient. Patient was lying on his right side on the ground. Opened ER sliding doors and asked if patient was ok. He stated that he was. When asked if he had any injury or wounds after his fall as he was assisted back to [place]. Patient stated, "no just my pride." Patient had denied hitting head, no loss of consciousness and no injuries noted upon palpation of the upper and lower extremities including hips. Patient able to get up with minimal assistance from the ground. Patient stated that he just rolled off the [place].
--- NOTE | 2022-01-26 14:10 | NUR ---
Patient was assisted to a chair in room at which [facility] was replaced with a hospital bed. Patient was assisted to new bed and bed was placed in a low position with bed rails up. Call light within reach. Patient still had no complaints after fall.
--- NOTE | 2022-01-26 18:15 | NUR ---
Dr. Trejo notified regarding patients fall earlier today. No new orders placed. Patient still has no complaints related to fall.
--- NOTE | 2022-01-26 18:40 | NUR ---
First encounter with pt that is here for covid with SOB awaiting an inpatient bed. Pt is in the cart eating at this time.
[2022-01-27] MEDS: ipratropium/albuterol 3ml nebule NEB SCH ×4 (02:29→20:40)
[2022-01-27 07:20] LABS: BASOPHILS % (AUTO) 0 % (0-1); EOSINOPHILS % (AUTO) 0 % (0-6); HEMATOCRIT 51.7 % (42.0-52.0); HEMOGLOBIN 17.2 g/dl (14.0-17.9); LYMPHOCYTES # (AUTO) 0.6 X10'3 (1.1-4.8); MEAN CORPUSCULAR HEMOGLOBIN 30.4 PG (27.0-31.0); MEAN CORPUSCULAR HGB CONC 33.3 g/dL (33.0-36.5); MEAN CORPUSCULAR VOLUME 91.5 FL (78-98); MEAN PLATELET VOLUME 8.4 FL (7.4-10.4); MONOCYTES # (AUTO) 0.8 X10'3 (0-0.9); MONOCYTES % (AUTO) 8.6 % (2-12); NEUTROPHILS # (AUTO) 8.2 X10'3 (1.8-7.7); NEUTROPHILS % (AUTO) 85.4 % (42-75); PLATELET COUNT 269 X10'3 (140-440); RED BLOOD COUNT 5.65 X10'6 (4.70-6.10); RED CELL DISTRIBUTION WIDTH 14.9 % (11.5-14.5); WHITE BLOOD COUNT 9.6 X10'3 (4.5-11.0)
[2022-01-27 07:24] LABS: D-DIMER 0.78 MG/L FEU (0-0.50)
[2022-01-27 07:40] LABS: ALBUMIN 2.9 G/DL (3.4-5.0); ANION GAP 8 (8-16); BLOOD UREA NITROGEN 26 MG/DL (7-18); BUN/CREATININE RATIO 20.6 (5.4-32.0); C-REACTIVE PROTEIN 5.04 MG/DL (0.0-0.5); CALCIUM 8.6 MG/DL (8.5-10.1); CHLORIDE 99 MMOL/L (99-107); CREATININE 1.26 MG/DL (0.60-1.10); GLUCOSE 144 MG/DL (70-104); LACTATE DEHYDROGENASE 234 U/L (85-227); POTASSIUM 4.3 MMOL/L (3.5-5.1); SODIUM 140 MMOL/L (135-145); TOTAL CARBON DIOXIDE 33.5 MMOL/L (24-32); eGFR 57 ML/MIN
[2022-01-27] MEDS: dexamethasone sod phosphate 4mg/ml inj. IV SCH ×2 (09:10→20:00)
[2022-01-27] MEDS: docusate sod 100mg capsule PO SCH ×2 (09:11→19:26)
[2022-01-27] MEDS: lactobacillus rhamnosus 10,000 MMU CELLS/CAPSULE PO SCH ×2 (09:11→19:26)
[2022-01-27] MEDS: CefTRIAXone/D5W-Rocephin 1gm 50 ML IV SCH (09:11)
[2022-01-27] MEDS: furosemide 40mg/4ml inj IV SCH ×2 (09:11→19:26)
[2022-01-27] MEDS: pantoprazole 40mg Tablet.DR PO SCH (09:12)
[2022-01-27] MEDS: enoxaparin 40mg/0.4ml syringe SUBCUT SCH (09:12)
[2022-01-27] MEDS: nicotine 21mg patch - 24 hr TD SCH (09:13)
[2022-01-27] MEDS: budesonide 0.5mg/2ml UD nebule IH SCH ×2 (09:17→20:40)
[2022-01-27] MEDS: REMDESIVIR INJ 100 MG in normal saline 100ml IV soln 100 ML IV SCH (09:47)
[2022-01-27 18:07] VITALS: BP 109/74
[2022-01-27 18:30] VITALS: BP 116/68
--- NOTE | 2022-01-27 18:30 | NUR ---
Problems reprioritized. Patient report given, questions answered & plan of care reviewed with Sirena RODRÍGUEZ, patient stable at transfer of care.
--- NOTE | 2022-01-27 18:30 | NUR ---
Patient in room PCU 3008. I have received report from Luana RODRÍGUEZ and had the opportunity to ask questions and assume patient care.
[2022-01-27] MEDS: hydrOXYzine 25 MG tablet PO PRN (19:26)
[2022-01-27 22:00] VITALS: BP 113/74
[2022-01-28 02:00] VITALS: BP 110/70
[2022-01-28] MEDS: ipratropium/albuterol 3ml nebule NEB SCH ×4 (03:00→20:22)
[2022-01-28] MEDS: ALBUTEROL INHALER 1 PUFF/90 MCG INHALation IH PRN (03:06)
[2022-01-28 06:00] VITALS: BP 106/72
--- NOTE | 2022-01-28 06:11 | NUR ---
Patient in room PCU 3008. I have received report from Sirena RODRÍGUEZ and had the opportunity to ask questions and assume patient care.
[2022-01-28 06:13] LABS: BASOPHILS % (AUTO) 0.1 % (0-1); EOSINOPHILS % (AUTO) 0.1 % (0-6); HEMATOCRIT 52.5 % (42.0-52.0); HEMOGLOBIN 17.3 g/dl (14.0-17.9); LYMPHOCYTES # (AUTO) 0.4 X10'3 (1.1-4.8); LYMPHOCYTES % (AUTO) 4.8 % (21-51); MEAN CORPUSCULAR HEMOGLOBIN 29.8 PG (27.0-31.0); MEAN CORPUSCULAR HGB CONC 32.9 g/dL (33.0-36.5); MEAN CORPUSCULAR VOLUME 90.5 FL (78-98); MEAN PLATELET VOLUME 8.9 FL (7.4-10.4); MONOCYTES # (AUTO) 0.8 X10'3 (0-0.9); MONOCYTES % (AUTO) 8.1 % (2-12); NEUTROPHILS # (AUTO) 8.1 X10'3 (1.8-7.7); NEUTROPHILS % (AUTO) 86.9 % (42-75); PLATELET COUNT 284 X10'3 (140-440); RED CELL DISTRIBUTION WIDTH 14.9 % (11.5-14.5); WHITE BLOOD COUNT 9.3 X10'3 (4.5-11.0)
[2022-01-28 06:21] LABS: ANION GAP 3 (8-16); BLOOD UREA NITROGEN 24 MG/DL (7-18); BUN/CREATININE RATIO 19.8 (5.4-32.0); C-REACTIVE PROTEIN 2.94 MG/DL (0.0-0.5); CALCIUM 8.5 MG/DL (8.5-10.1); CHLORIDE 96 MMOL/L (99-107); CREATININE 1.21 MG/DL (0.60-1.10); GLUCOSE 171 MG/DL (70-104); LACTATE DEHYDROGENASE 268 U/L (85-227); POTASSIUM 3.9 MMOL/L (3.5-5.1); SODIUM 136 MMOL/L (135-145); TOTAL CARBON DIOXIDE 36.7 MMOL/L (24-32); eGFR 60 ML/MIN
--- NOTE | 2022-01-28 06:25 | NUR ---
Problems reprioritized. Patient report given, questions answered & plan of care reviewed with Luana RODRÍGUEZ.
[2022-01-28] MEDS: budesonide 0.5mg/2ml UD nebule IH SCH ×2 (08:01→20:22)
[2022-01-28] MEDS: CefTRIAXone/D5W-Rocephin 1gm 50 ML IV SCH (08:45)
[2022-01-28] MEDS: nicotine 21mg patch - 24 hr TD SCH (08:46)
[2022-01-28] MEDS: REMDESIVIR INJ 100 MG in normal saline 100ml IV soln 100 ML IV SCH (08:46)
[2022-01-28] MEDS: furosemide 40mg/4ml inj IV SCH ×2 (08:46→20:44)
[2022-01-28] MEDS: docusate sod 100mg capsule PO SCH ×2 (08:47→20:43)
[2022-01-28] MEDS: pantoprazole 40mg Tablet.DR PO SCH (08:47)
[2022-01-28] MEDS: enoxaparin 40mg/0.4ml syringe SUBCUT SCH (08:48)
[2022-01-28] MEDS: dexamethasone sod phosphate 4mg/ml inj. IV SCH ×2 (08:51→20:44)
[2022-01-28] MEDS: hydrOXYzine 25 MG tablet PO PRN ×2 (08:58→21:01)
[2022-01-28] MEDS ORDERED: LORazepam 2 mg/ml vial IV ONE (09:40)
[2022-01-28 11:00] VITALS: BP 109/51
--- NOTE | 2022-01-28 13:06 | NUR ---
MECHANICAL TEST ENGINEER ERROR, DISREGARD PRE TREATMENT VITALS DATA ENTERED AT 1251 ON [facility]. ENTERED BY MISTAKEN NOT REFLECTIVE OF PATIENT'S STATUS WHAT SO EVER. Addendum: 01/28/22 at 1307 by Lior Ferro RT Amended: Links added.
--- NOTE | 2022-01-28 18:56 | NUR ---
Problems reprioritized. Patient report given, questions answered & plan of care reviewed with Karrie RODRÍGUEZ, patient stable at transfer of care.
[2022-01-28] MEDS: lactobacillus rhamnosus 10,000 MMU CELLS/CAPSULE PO SCH (20:43)
[2022-01-28] MEDS: temazepam 15mg capsule PO PRN (21:05)
[2022-01-29 02:00] VITALS: BP 97/39
[2022-01-29] MEDS: ipratropium/albuterol 3ml nebule NEB SCH ×4 (03:40→20:00)
[2022-01-29 06:00] VITALS: BP 111/75
--- NOTE | 2022-01-29 06:00 | NUR ---
Patient in room PCU 3008. I have received report from Karrie RODRÍGUEZ and had the opportunity to ask questions and assume patient care.
[2022-01-29 07:54] LABS: BASOPHILS % (AUTO) 0.3 % (0-1); EOSINOPHILS % (AUTO) 0 % (0-6); LYMPHOCYTES # (AUTO) 0.5 X10'3 (1.1-4.8); LYMPHOCYTES % (AUTO) 4.7 % (21-51); MEAN CORPUSCULAR HGB CONC 33.5 g/dL (33.0-36.5); MEAN CORPUSCULAR VOLUME 89.7 FL (78-98); MEAN PLATELET VOLUME 8.5 FL (7.4-10.4); MONOCYTES # (AUTO) 1.3 X10'3 (0-0.9); MONOCYTES % (AUTO) 10.6 % (2-12); NEUTROPHILS # (AUTO) 9.9 X10'3 (1.8-7.7); NEUTROPHILS % (AUTO) 84.4 % (42-75); PLATELET COUNT 280 X10'3 (140-440); RED BLOOD COUNT 6.25 X10'6 (4.70-6.10); RED CELL DISTRIBUTION WIDTH 14.6 % (11.5-14.5); WHITE BLOOD COUNT 11.8 X10'3 (4.5-11.0)
[2022-01-29] MEDS: CefTRIAXone/D5W-Rocephin 1gm 50 ML IV SCH (08:00)
[2022-01-29] MEDS: docusate sod 100mg capsule PO SCH ×2 (08:00→20:45)
[2022-01-29] MEDS: dexamethasone sod phosphate 4mg/ml inj. IV SCH ×2 (08:00→20:50)
[2022-01-29 08:13] LABS: HEMOGLOBIN 18.8 g/dl (14.0-17.9)
[2022-01-29 08:20] LABS: ALBUMIN 3.4 G/DL (3.4-5.0); ANION GAP 8 (8-16); BLOOD UREA NITROGEN 26 MG/DL (7-18); BUN/CREATININE RATIO 22.6 (5.4-32.0); C-REACTIVE PROTEIN 1.92 MG/DL (0.0-0.5); CHLORIDE 95 MMOL/L (99-107); CREATININE 1.15 MG/DL (0.60-1.10); GLUCOSE 140 MG/DL (70-104); LACTATE DEHYDROGENASE 260 U/L (85-227); POTASSIUM 4.1 MMOL/L (3.5-5.1); SODIUM 140 MMOL/L (135-145); eGFR 64 ML/MIN
--- NOTE | 2022-01-29 08:21 | NUR ---
Initial: Pt admitted w/ Covid, acute respiratory failure, and acute on chronic cor pulmonale per EMR. Currently on Regular diet eating mostly 100% of meals though only partially meeting needs. Will provide double protein BID to help meet increased needs. [facility] 01/25 receiving routine colace. Will continue to monitor. Recs: 1. Continue Regular diet as tolerated 2. Double protein BIDBD 3. Bowel care per rx 4. Weekly wts Addendum: 01/29/22 at [address] Amended: Links added.
[2022-01-29 08:27] LABS: D-DIMER 0.67 MG/L FEU (0-0.50)
[2022-01-29] MEDS: budesonide 0.5mg/2ml UD nebule IH SCH ×2 (09:14→20:00)
[2022-01-29] MEDS: REMDESIVIR INJ 100 MG in normal saline 100ml IV soln 100 ML IV SCH (10:30)
[2022-01-29] MEDS: enoxaparin 40mg/0.4ml syringe SUBCUT SCH (10:31)
[2022-01-29] MEDS: nicotine 21mg patch - 24 hr TD SCH (10:32)
[2022-01-29] MEDS: furosemide 40mg/4ml inj IV SCH ×2 (10:32→20:46)
[2022-01-29] MEDS: hydrOXYzine 25 MG tablet PO PRN (10:33)
[2022-01-29] MEDS: pantoprazole 40mg Tablet.DR PO SCH (10:35)
[2022-01-29] MEDS: lactobacillus rhamnosus 10,000 MMU CELLS/CAPSULE PO SCH ×2 (10:35→20:45)
[2022-01-29] MEDS: LORazepam 0.5 MG tablet PO PRN (11:12)
[2022-01-29 15:00] VITALS: BP 136/90
[2022-01-29 18:00] VITALS: BP 132/76
--- NOTE | 2022-01-29 18:43 | NUR ---
Problems reprioritized. Patient report given, questions answered & plan of care reviewed with Shelbie Guajardo, patient stable at transfer.
--- NOTE | 2022-01-29 18:45 | NUR ---
Patient in room PCU 3008. I have received report from ANNE Craft and had the opportunity to ask questions and assume patient care.
[2022-01-29] MEDS: temazepam 15mg capsule PO PRN (20:45)
[2022-01-29 22:00] VITALS: BP 135/72
[2022-01-30 02:00] VITALS: BP 136/82
[2022-01-30] MEDS: ipratropium/albuterol 3ml nebule NEB SCH ×4 (03:38→20:44)
--- NOTE | 2022-01-30 04:52 | NUR ---
pt pulled IV out approximately around midnight. Refused for a new IV. I was able to attempt twice while he was sleeping. He awoke and refused any more attempts. So pt has no IV.
[2022-01-30 06:00] VITALS: BP 109/62
--- NOTE | 2022-01-30 07:10 | NUR ---
Problems reprioritized. Patient report given, questions answered & plan of care reviewed with ANNE Pardo.
[2022-01-30] MEDS: budesonide 0.5mg/2ml UD nebule IH SCH ×2 (07:41→20:44)
[2022-01-30 07:49] LABS: D-DIMER 0.61 MG/L FEU (0-0.50)
[2022-01-30 07:56] LABS: MEAN PLATELET VOLUME 8.8 FL (7.4-10.4)
[2022-01-30 07:58] LABS: HEMATOCRIT 57.1 % (42.0-52.0); MEAN CORPUSCULAR HEMOGLOBIN 30.2 PG (27.0-31.0); MEAN CORPUSCULAR HGB CONC 33.5 g/dL (33.0-36.5); MEAN CORPUSCULAR VOLUME 90.2 FL (78-98); PLATELET COUNT 253 X10'3 (140-440); RED BLOOD COUNT 6.33 X10'6 (4.70-6.10); RED CELL DISTRIBUTION WIDTH 15.2 % (11.5-14.5); WHITE BLOOD COUNT 10.3 X10'3 (4.5-11.0)
--- NOTE | 2022-01-30 08:06 | NUR ---
PT found with nasal cannula half out of nares upside down, sp02 87%, replaced NC sp02 improved, encourage prone position and pt to wear bipap after breakfast as tolerated. PT agrees to plan of care , plan to titrate fio2 as tolerated. Addendum: 01/30/22 at 0808 by Iris Rey RT Amended: Links added.
[2022-01-30 08:19] LABS: HEMOGLOBIN 19.1 g/dl (14.0-17.9)
[2022-01-30 08:24] LABS: ALBUMIN 3.1 G/DL (3.4-5.0); ANION GAP 8 (8-16); BLOOD UREA NITROGEN 26 MG/DL (7-18); BUN/CREATININE RATIO 24.3 (5.4-32.0); C-REACTIVE PROTEIN 2.18 MG/DL (0.0-0.5); CALCIUM 8.9 MG/DL (8.5-10.1); CHLORIDE 91 MMOL/L (99-107); CREATININE 1.07 MG/DL (0.60-1.10); GLUCOSE 206 MG/DL (70-104); LACTATE DEHYDROGENASE 243 U/L (85-227); POTASSIUM 3.8 MMOL/L (3.5-5.1); SODIUM 137 MMOL/L (135-145); TOTAL CARBON DIOXIDE 37.6 MMOL/L (24-32); eGFR 69 ML/MIN
[2022-01-30] MEDS ORDERED: bisacodyl 10mg suppository rectal RC PRN (08:25)
[2022-01-30 09:10] LABS: TOTAL CELLS COUNTED 100
[2022-01-30 09:11] LABS: ANISOCYTOSIS FEW; PLATELET ESTIMATE NORMAL
[2022-01-30 11:00] VITALS: BP 104/68
[2022-01-30] MEDS: dexamethasone sod phosphate 4mg/ml inj. IV SCH ×2 (11:19→19:21)
[2022-01-30] MEDS: furosemide 40mg/4ml inj IV SCH ×2 (11:21→19:21)
[2022-01-30] MEDS: CefTRIAXone/D5W-Rocephin 1gm 50 ML IV SCH (11:23)
[2022-01-30] MEDS: pantoprazole 40mg Tablet.DR PO SCH (11:24)
[2022-01-30] MEDS: docusate sod 100mg capsule PO SCH ×2 (11:24→19:20)
[2022-01-30] MEDS: lactobacillus rhamnosus 10,000 MMU CELLS/CAPSULE PO SCH ×2 (11:24→19:20)
[2022-01-30] MEDS: hydrOXYzine 25 MG tablet PO PRN ×2 (11:24→20:14)
[2022-01-30] MEDS: nicotine 21mg patch - 24 hr TD SCH (11:27)
[2022-01-30] MEDS: enoxaparin 40mg/0.4ml syringe SUBCUT SCH (11:27)
[2022-01-30 15:00] VITALS: BP 98/65
[2022-01-30 18:00] VITALS: BP 112/56
--- NOTE | 2022-01-30 18:30 | NUR ---
Patient in room PCU 3008. I have received report from ANNE Pardo and had the opportunity to ask questions and assume patient care.
--- NOTE | 2022-01-30 18:30 | NUR ---
Problems reprioritized. Patient report given, questions answered & plan of care reviewed with ANNE Morfin.
[2022-01-30] MEDS: magnesium hydroxide 30ml (MOM) UD suspension PO PRN (20:14)
[2022-01-30] MEDS: temazepam 15mg capsule PO PRN (20:14)
[2022-01-30 22:00] VITALS: BP 104/49
[2022-01-31 02:00] VITALS: BP 102/58
[2022-01-31] MEDS: ipratropium/albuterol 3ml nebule NEB SCH ×4 (03:00→20:12)
[2022-01-31] MEDS: magnesium hydroxide 30ml (MOM) UD suspension PO PRN (05:23)
--- NOTE | 2022-01-31 06:00 | NUR ---
Patient in room PCU 3008. I have received report from ANNE Morfin and had the opportunity to ask questions and assume patient care.
--- NOTE | 2022-01-31 06:34 | NUR ---
Problems reprioritized. Patient report given, questions answered & plan of care reviewed with Padmini, RN.
[2022-01-31 07:30] VITALS: BP 148/84
[2022-01-31] MEDS: enoxaparin 40mg/0.4ml syringe SUBCUT SCH (07:37)
[2022-01-31] MEDS: nicotine 21mg patch - 24 hr TD SCH (07:38)
[2022-01-31] MEDS: CefTRIAXone/D5W-Rocephin 1gm 50 ML IV SCH (07:38)
[2022-01-31] MEDS: furosemide 40mg/4ml inj IV SCH ×2 (07:38→20:30)
[2022-01-31] MEDS: lactobacillus rhamnosus 10,000 MMU CELLS/CAPSULE PO SCH ×2 (07:39→20:30)
[2022-01-31] MEDS: pantoprazole 40mg Tablet.DR PO SCH (07:39)
[2022-01-31] MEDS: hydrOXYzine 25 MG tablet PO PRN ×2 (07:39→20:30)
[2022-01-31] MEDS: docusate sod 100mg capsule PO SCH ×2 (07:39→20:30)
[2022-01-31 08:07] LABS: D-DIMER 0.98 MG/L FEU (0-0.50)
[2022-01-31] MEDS: budesonide 0.5mg/2ml UD nebule IH SCH ×2 (09:11→20:12)
[2022-01-31 09:36] LABS: C-REACTIVE PROTEIN 1.96 MG/DL (0.0-0.5)
[2022-01-31 11:00] VITALS: BP 112/62
[2022-01-31] MEDS: dexamethasone sod phosphate 4mg/ml inj. IV SCH ×2 (12:17→20:30)
[2022-01-31] MEDS: HYDROcodone/acetaminophen 5mg/325mg tablet PO PRN (12:29)
[2022-01-31 15:00] VITALS: BP 126/67
[2022-01-31 18:00] VITALS: BP 93/53
--- NOTE | 2022-01-31 18:00 | NUR ---
Problems reprioritized. Patient report given, questions answered & plan of care reviewed with ANNE Morfin. Pt on 15L NC most of the shift, pt resp fred abarca labored after trying to wean. Pt placed on bipap by RT, tolerating well. Pt taking PRN norco for chronic hip pain & Atarax for anxiety. Pt currently resting in bed, VSS, no signs of acute distress.
--- NOTE | 2022-01-31 19:04 | NUR ---
Patient in room PCU 3008. I have received report from Padmini RN and had the opportunity to ask questions and assume patient care.
[2022-01-31 22:00] VITALS: BP 111/68
[2022-02-01] VITALS (7 sets, daily range): BP systolic 110–143; BP diastolic 62–80
[2022-02-01] MEDS: ipratropium/albuterol 3ml nebule NEB SCH ×4 (03:26→21:52)
--- NOTE | 2022-02-01 06:24 | NUR ---
Problems reprioritized. Patient report given, questions answered & plan of care reviewed with ANNE Jo.
[2022-02-01] MEDS: budesonide 0.5mg/2ml UD nebule IH SCH ×2 (09:00→21:52)
--- NOTE | 2022-02-01 09:00 | NUR ---
Upon entering patients room this morning, i found a tub full of IV starts, several saline syringes, several regular syringes. A bag of IV medication that was never infused. These things should NOT be left in a patient room, let alone a drug user.
[2022-02-01] MEDS: dexamethasone sod phosphate 4mg/ml inj. IV SCH (09:02)
[2022-02-01] MEDS: lactobacillus rhamnosus 10,000 MMU CELLS/CAPSULE PO SCH ×2 (09:03→20:34)
[2022-02-01] MEDS: enoxaparin 40mg/0.4ml syringe SUBCUT SCH (09:03)
[2022-02-01] MEDS: nicotine 21mg patch - 24 hr TD SCH (09:04)
[2022-02-01] MEDS: docusate sod 100mg capsule PO SCH ×2 (09:04→20:33)
[2022-02-01] MEDS: furosemide 40mg/4ml inj IV SCH ×2 (09:04→20:33)
[2022-02-01] MEDS: pantoprazole 40mg Tablet.DR PO SCH (09:05)
[2022-02-01 10:03] LABS: D-DIMER 0.68 MG/L FEU (0-0.50)
[2022-02-01 10:22] LABS: C-REACTIVE PROTEIN 16.75 MG/DL (0.0-0.5)
[2022-02-01] MEDS: dexamethasone 4mg/ml inj IV SCH (20:35)
[2022-02-02] VITALS: BP 117/60
[2022-02-02] MEDS: temazepam 15mg capsule PO PRN ×2 (00:02→23:13)
[2022-02-02 02:00] VITALS: BP 126/82
[2022-02-02] MEDS: ipratropium/albuterol 3ml nebule NEB SCH ×4 (02:33→20:32)
[2022-02-02 06:00] VITALS: BP 118/98
--- NOTE | 2022-02-02 06:24 | NUR ---
Problems reprioritized. Patient report given, questions answered & plan of care reviewed with ANNE IGNACOI.
--- NOTE | 2022-02-02 06:41 | NUR ---
Patient in room PCU 3008. I have received report from ANNE Frausto and had the opportunity to ask questions and assume patient care.
[2022-02-02] MEDS: budesonide 0.5mg/2ml UD nebule IH SCH ×2 (08:14→20:32)
[2022-02-02] MEDS: lactobacillus rhamnosus 10,000 MMU CELLS/CAPSULE PO SCH ×2 (09:25→22:55)
[2022-02-02] MEDS: pantoprazole 40mg Tablet.DR PO SCH (09:25)
[2022-02-02] MEDS: furosemide 40mg/4ml inj IV SCH ×2 (09:25→22:54)
[2022-02-02] MEDS: docusate sod 100mg capsule PO SCH ×2 (09:25→22:54)
[2022-02-02] MEDS: nicotine 21mg patch - 24 hr TD SCH (09:26)
[2022-02-02] MEDS: enoxaparin 40mg/0.4ml syringe SUBCUT SCH (09:26)
[2022-02-02] MEDS: dexamethasone 4mg/ml inj IV SCH ×2 (09:27→22:54)
[2022-02-02] MEDS: HYDROcodone/acetaminophen 5mg/325mg tablet PO PRN (09:29)
[2022-02-02 14:45] VITALS: BP 115/78
--- NOTE | 2022-02-02 18:11 | NUR ---
Problems reprioritized. Patient report given, questions answered & plan of care reviewed with ANNE Frausto.
[2022-02-02 22:00] VITALS: BP 125/71
[2022-02-03] VITALS (7 sets, daily range): BP systolic 111–121; BP diastolic 62–77
[2022-02-03] MEDS: ipratropium/albuterol 3ml nebule NEB SCH ×4 (03:37→20:56)
[2022-02-03 05:56] LABS: BASOPHILS % (AUTO) 0.1 % (0-1); EOSINOPHILS % (AUTO) 0 % (0-6); HEMATOCRIT 53.7 % (42.0-52.0); HEMOGLOBIN 17.6 g/dl (14.0-17.9); LYMPHOCYTES # (AUTO) 0.6 X10'3 (1.1-4.8); LYMPHOCYTES % (AUTO) 2.9 % (21-51); MEAN CORPUSCULAR HEMOGLOBIN 29.4 PG (27.0-31.0); MEAN CORPUSCULAR HGB CONC 32.8 g/dL (33.0-36.5); MEAN CORPUSCULAR VOLUME 89.6 FL (78-98); MEAN PLATELET VOLUME 9.2 FL (7.4-10.4); MONOCYTES # (AUTO) 1.4 X10'3 (0-0.9); MONOCYTES % (AUTO) 7.3 % (2-12); NEUTROPHILS # (AUTO) 17.6 X10'3 (1.8-7.7); NEUTROPHILS % (AUTO) 89.7 % (42-75); PLATELET COUNT 254 X10'3 (140-440); RED CELL DISTRIBUTION WIDTH 14.9 % (11.5-14.5); WHITE BLOOD COUNT 19.6 X10'3 (4.5-11.0)
[2022-02-03 06:08] LABS: D-DIMER 0.61 MG/L FEU (0-0.50)
[2022-02-03 06:12] LABS: ALANINE AMINOTRANSFERASE 21 U/L (12-78); ALBUMIN 2.8 G/DL (3.4-5.0); ALBUMIN/GLOBULIN RATIO 0.6 (1.1-1.5); ALKALINE PHOSPHATASE 85 IU/L (46-116); ANION GAP 2 (8-16); ASPARTATE AMINO TRANSFERASE 18 U/L (10-37); BILIRUBIN,TOTAL 0.8 MG/DL (0.1-1.0); BLOOD UREA NITROGEN 31 MG/DL (7-18); BUN/CREATININE RATIO 19.6 (5.4-32.0); C-REACTIVE PROTEIN 8.02 MG/DL (0.0-0.5); CALCIUM 9.1 MG/DL (8.5-10.1); CHLORIDE 88 MMOL/L (99-107); CREATININE 1.58 MG/DL (0.60-1.10); GLUCOSE 208 MG/DL (70-104); POTASSIUM 3.5 MMOL/L (3.5-5.1); SODIUM 133 MMOL/L (135-145); TOTAL PROTEIN 7.6 G/DL (6.4-8.2); eGFR 44 ML/MIN
--- NOTE | 2022-02-03 06:15 | NUR ---
Patient in room PCU 3008. I have received report from Lisbet RODRÍGUEZ and had the opportunity to ask questions and assume patient care.
[2022-02-03 06:18] LABS: TOTAL CARBON DIOXIDE 43.2 MMOL/L (24-32)
--- NOTE | 2022-02-03 06:22 | NUR ---
Problems reprioritized. Patient report given, questions answered & plan of care reviewed with ANNE morataya.
--- NOTE | 2022-02-03 07:04 | NUR ---
CRITICAL LAB PAGE PAGER ID: [phone] MESSAGE: [id number]: Miguelito Velez: Critical C02 level 43.2 [place] [id number]
[2022-02-03] MEDS: budesonide 0.5mg/2ml UD nebule IH SCH ×2 (07:35→20:56)
--- NOTE | 2022-02-03 08:50 | NUR ---
PAGER ID: [phone] MESSAGE: [id number] Miguelito Velez: PAGE#2 - Did you get page about critical CO2 of 43.2? Deysi [facility] [phone]
[2022-02-03] MEDS: enoxaparin 40mg/0.4ml syringe SUBCUT SCH (09:22)
[2022-02-03] MEDS: nicotine 21mg patch - 24 hr TD SCH (09:22)
[2022-02-03] MEDS: furosemide 40mg/4ml inj IV SCH (09:23)
[2022-02-03] MEDS: dexamethasone 4mg/ml inj IV SCH ×2 (09:23→20:24)
[2022-02-03] MEDS: lactobacillus rhamnosus 10,000 MMU CELLS/CAPSULE PO SCH ×2 (09:23→20:26)
[2022-02-03] MEDS: docusate sod 100mg capsule PO SCH ×2 (09:24→20:26)
[2022-02-03] MEDS: pantoprazole 40mg Tablet.DR PO SCH (09:24)
[2022-02-03] MEDS: LORazepam 0.5 MG tablet PO PRN (10:02)
[2022-02-03] MEDS: temazepam 15mg capsule PO PRN (20:26)
[2022-02-04 02:00] VITALS: BP 124/66
[2022-02-04] MEDS: ipratropium/albuterol 3ml nebule NEB SCH ×4 (03:04→20:33)
[2022-02-04 06:00] VITALS: BP 110/66
--- NOTE | 2022-02-04 06:00 | NUR ---
Patient in room PCU 3008. I have received report from ANNE Frausto and had the opportunity to ask questions and assume patient care.
--- NOTE | 2022-02-04 06:22 | NUR ---
Problems reprioritized. Patient report given, questions answered & plan of care reviewed with ANNE Abdul.
[2022-02-04] MEDS: budesonide 0.5mg/2ml UD nebule IH SCH ×2 (07:50→20:33)
[2022-02-04 07:51] LABS: BASOPHILS % (AUTO) 0.1 % (0-1); EOSINOPHILS % (AUTO) 0.1 % (0-6); HEMATOCRIT 54.5 % (42.0-52.0); LYMPHOCYTES # (AUTO) 0.9 X10'3 (1.1-4.8); LYMPHOCYTES % (AUTO) 4.2 % (21-51); MEAN CORPUSCULAR HGB CONC 33.1 g/dL (33.0-36.5); MEAN CORPUSCULAR VOLUME 90.6 FL (78-98); MONOCYTES # (AUTO) 1.5 X10'3 (0-0.9); MONOCYTES % (AUTO) 6.9 % (2-12); NEUTROPHILS % (AUTO) 88.7 % (42-75); PLATELET COUNT 282 X10'3 (140-440); RED BLOOD COUNT 6.01 X10'6 (4.70-6.10); RED CELL DISTRIBUTION WIDTH 14.4 % (11.5-14.5); WHITE BLOOD COUNT 22.5 X10'3 (4.5-11.0)
[2022-02-04] MEDS: dexamethasone 4mg/ml inj IV SCH ×2 (08:17→19:59)
[2022-02-04] MEDS: pantoprazole 40mg Tablet.DR PO SCH (08:18)
[2022-02-04] MEDS: docusate sod 100mg capsule PO SCH ×2 (08:18→20:00)
[2022-02-04] MEDS: nicotine 21mg patch - 24 hr TD SCH (08:18)
[2022-02-04] MEDS: lactobacillus rhamnosus 10,000 MMU CELLS/CAPSULE PO SCH ×2 (08:18→20:00)
[2022-02-04] MEDS: enoxaparin 40mg/0.4ml syringe SUBCUT SCH (08:18)
[2022-02-04] MEDS: HYDROcodone/acetaminophen 5mg/325mg tablet PO PRN (08:19)
[2022-02-04] MEDS: hydrOXYzine 25 MG tablet PO PRN (08:19)
[2022-02-04 08:35] LABS: ALANINE AMINOTRANSFERASE 28 U/L (12-78); ALBUMIN 2.8 G/DL (3.4-5.0); ALBUMIN/GLOBULIN RATIO 0.6 (1.1-1.5); ALKALINE PHOSPHATASE 97 IU/L (46-116); ANION GAP 8 (8-16); ASPARTATE AMINO TRANSFERASE 19 U/L (10-37); BILIRUBIN,TOTAL 0.8 MG/DL (0.1-1.0); BLOOD UREA NITROGEN 30 MG/DL (7-18); BUN/CREATININE RATIO 24.4 (5.4-32.0); CALCIUM 9.6 MG/DL (8.5-10.1); CHLORIDE 87 MMOL/L (99-107); CREATININE 1.23 MG/DL (0.60-1.10); GLUCOSE 241 MG/DL (70-104); POTASSIUM 4.2 MMOL/L (3.5-5.1); SODIUM 133 MMOL/L (135-145); TOTAL CARBON DIOXIDE 38.5 MMOL/L (24-32); TOTAL PROTEIN 7.8 G/DL (6.4-8.2); eGFR 59 ML/MIN
--- NOTE | 2022-02-04 09:23 | NUR ---
Reassessment: Pt continues on Regular diet receiving double protein BID, w/ decline in PO intake, avg 48% x 11 not meeting needs. The decline in PO could be r/t respiratory status, it seems that pt uses BiPAP at night per documentation. Current PO trends no longer warrant providing double protein w/ meals, will instead recommend Ensure Enlive TID to assist w/ meeting needs. [facility] 8/2 receiving routine colace. Will continue to monitor. Recs: 1. Continue Regular diet as tolerated 2. Ensure Enlive TID; if out of stock sub Ensure High protein 3. Bowel care per rx 4. Weekly wts Addendum: 02/04/22 at [address] Amended: Links added.
[2022-02-04 11:00] VITALS: BP 120/79
[2022-02-04] MEDS ORDERED: levoFLOXACIN 750MG TABLET PO SCH (11:00)
[2022-02-04 15:00] VITALS: BP 122/72
[2022-02-04 18:00] VITALS: BP 238/74
--- NOTE | 2022-02-04 18:00 | NUR ---
Problems reprioritized. Patient report given, questions answered & plan of care reviewed with ANNE Yoon. Pt satting well throughout day with 15L NC. Pt resting comfortably in bed, no signs of acute distress, VSS, call light within reach, answered all questions. PRN pain and anxiety meds given.
[2022-02-04] MEDS: temazepam 15mg capsule PO PRN (20:00)
--- NOTE | 2022-02-04 21:05 | NUR ---
o2 reading at 70's on monitor. Checked with portable fimger. Difficult to register, poor pleth. registered at 89 breifly on 10 L. Adjusted to 12 L. Continue to monitor. Patient resting comfortably RR 17, no SOB or signs of distress.
[2022-02-04 22:00] VITALS: BP 122/71
[2022-02-05 02:00] VITALS: BP 104/72
[2022-02-05] MEDS: ipratropium/albuterol 3ml nebule NEB SCH ×4 (02:36→20:16)
[2022-02-05 06:00] VITALS: BP 110/66
--- NOTE | 2022-02-05 06:00 | NUR ---
Patient in room PCU 3008. I have received report from ANNE Yoon and had the opportunity to ask questions and assume patient care.
[2022-02-05] MEDS: budesonide 0.5mg/2ml UD nebule IH SCH ×2 (08:17→20:16)
[2022-02-05 08:32] LABS: BASOPHILS % (AUTO) 0.1 % (0-1); EOSINOPHILS % (AUTO) 0.1 % (0-6); HEMATOCRIT 50.5 % (42.0-52.0); HEMOGLOBIN 16.6 g/dl (14.0-17.9); LYMPHOCYTES # (AUTO) 0.9 X10'3 (1.1-4.8); LYMPHOCYTES % (AUTO) 4.1 % (21-51); MEAN CORPUSCULAR HEMOGLOBIN 29.5 PG (27.0-31.0); MEAN CORPUSCULAR HGB CONC 32.8 g/dL (33.0-36.5); MEAN CORPUSCULAR VOLUME 89.7 FL (78-98); MEAN PLATELET VOLUME 8.9 FL (7.4-10.4); MONOCYTES # (AUTO) 1.4 X10'3 (0-0.9); MONOCYTES % (AUTO) 6.5 % (2-12); NEUTROPHILS # (AUTO) 19.8 X10'3 (1.8-7.7); NEUTROPHILS % (AUTO) 89.2 % (42-75); PLATELET COUNT 249 X10'3 (140-440); RED BLOOD COUNT 5.62 X10'6 (4.70-6.10); RED CELL DISTRIBUTION WIDTH 14.7 % (11.5-14.5); WHITE BLOOD COUNT 22.2 X10'3 (4.5-11.0)
[2022-02-05] MEDS: docusate sod 100mg capsule PO SCH ×2 (08:33→21:52)
[2022-02-05] MEDS: pantoprazole 40mg Tablet.DR PO SCH (08:33)
[2022-02-05] MEDS: lactobacillus rhamnosus 10,000 MMU CELLS/CAPSULE PO SCH ×2 (08:33→21:52)
[2022-02-05] MEDS: nicotine 21mg patch - 24 hr TD SCH (08:33)
[2022-02-05] MEDS: HYDROcodone/acetaminophen 5mg/325mg tablet PO PRN (08:33)
[2022-02-05] MEDS: hydrOXYzine 25 MG tablet PO PRN ×2 (08:33→21:53)
[2022-02-05] MEDS: dexamethasone 4mg/ml inj IV SCH ×2 (08:34→21:52)
[2022-02-05] MEDS: enoxaparin 40mg/0.4ml syringe SUBCUT SCH (08:34)
[2022-02-05 09:48] LABS: PLATELET ESTIMATE NORMAL; TOTAL CELLS COUNTED 100
[2022-02-05 11:00] VITALS: BP 113/70
[2022-02-05 15:00] VITALS: BP 135/78
[2022-02-05 18:00] VITALS: BP 91/42
--- NOTE | 2022-02-05 18:10 | NUR ---
Problems reprioritized. Patient report given, questions answered & plan of care reviewed with ANNE Yoon. Pt resting comfortably in bed. Pt up independently in room. Pt weaned down to 7L NC throughout shift, satting 90-92%. Pt states he feels much better. Pt currently eating dinner, no signs of acute distress, VSS, hourly rounding completed, call light within reach.
[2022-02-05] MEDS: ciprofloxacin 250mg tablet PO SCH (21:52)
[2022-02-05] MEDS: temazepam 15mg capsule PO PRN (21:53)
[2022-02-05 22:00] VITALS: BP 114/56
[2022-02-06 02:00] VITALS: BP 112/47
[2022-02-06] MEDS: ipratropium/albuterol 3ml nebule NEB SCH ×3 (02:46→15:00)
[2022-02-06 06:00] VITALS: BP 126/46
--- NOTE | 2022-02-06 06:00 | NUR ---
Patient in room PCU 3008. I have received report from ANNE Morfin and had the opportunity to ask questions and assume patient care.
--- NOTE | 2022-02-06 06:47 | NUR ---
Problems reprioritized. Patient report given, questions answered & plan of care reviewed with Padmini, RN.
[2022-02-06] MEDS: dexamethasone 4mg/ml inj IV SCH (07:55)
[2022-02-06] MEDS: enoxaparin 40mg/0.4ml syringe SUBCUT SCH (07:55)
[2022-02-06] MEDS: docusate sod 100mg capsule PO SCH (07:56)
[2022-02-06] MEDS: lactobacillus rhamnosus 10,000 MMU CELLS/CAPSULE PO SCH (07:56)
[2022-02-06] MEDS: hydrOXYzine 25 MG tablet PO PRN (07:56)
[2022-02-06] MEDS: nicotine 21mg patch - 24 hr TD SCH (07:56)
[2022-02-06] MEDS: pantoprazole 40mg Tablet.DR PO SCH (07:56)
[2022-02-06] MEDS: HYDROcodone/acetaminophen 5mg/325mg tablet PO PRN (07:57)
[2022-02-06] MEDS: budesonide 0.5mg/2ml UD nebule IH SCH (08:53)
[2022-02-06] MEDS ORDERED: ALBU18HF2 INH (09:56)
[2022-02-06] MEDS ORDERED: DEC4T PO (09:56)
[2022-02-06] MEDS ORDERED: APIX5TAB3 PO (09:56)
[2022-02-06] MEDS: ciprofloxacin 250mg tablet PO SCH (10:55)
--- NOTE | 2022-02-06 10:56 | NUR ---
O2 Sat at rest on room air:_84__% If below 89%: Recovery O2 Sat at rest on _5__LPM:___%:___% via nasal cannula (mask/nasal cannula, etc..) No further documentation is necessary. If O2 Sat did not drop below 89% on room air,ambulate patient on room air. O2 Sat while ambulating on room air:___% Recovery O2 Sat while ambulating on ___LPM:___% No further documentation is necessary. If patient does not drop below 89% while ambulating, he/she does not qualify for home O2.
[2022-02-06 11:00] VITALS: BP 131/81
--- NOTE | 2022-02-06 11:11 | NUR ---
O2 Sat at rest on room air:__84_% If below 89%: Recovery O2 Sat at rest on _5__LPM:_92__%:___% via nasal cannula (mask/nasal cannula, etc..) No further documentation is necessary. If O2 Sat did not drop below 89% on room air,ambulate patient on room air. O2 Sat while ambulating on room air:___% Recovery O2 Sat while ambulating on ___LPM:___% No further documentation is necessary. If patient does not drop below 89% while ambulating, he/she does not qualify for home O2.
[2022-02-06] MEDS ORDERED: LEVO750T46 PO (11:19)
--- NOTE | 2022-02-06 15:00 | NUR ---
DISCHARGE NOTE: Pt seen by MD Rodriges this morning, ok to dc today. Pt on 5L satting at 92%. Case Management arranged home O2. Pt's is picking up home oxygen and new prescriptions. Pt anxious to go home. Addendum: 02/06/22 at 1714 by Chantell Vaughan RN Reviewed discharge packet with pt, answered all questions. PIV and telemonitor removed. Pt's picked up home oxygen tank and medications. Pt wheeled down to main entrance by this RN with all belongings. Pt in no acute distres, sent home on 5L NC.
== END 2022-02-06 17:00 | disposition home or self-care (01) | DRG 177 ==
LOC: ER 00:02 → ED HOLD 07:26 → EDBEDREQ 01-27 05:38 → PCU 3S 01-27 17:09
PROVIDERS: ADMIT Internal Medicine; ATTEND Internal Medicine
PROC: XW033E5 Introduction of Remdesivir Anti-infective into Peripheral Vein, Percutaneous Approach, New Technology Group 5 (ICD-10-PCS; principal; 2022-01-25)
PROC: 5A09357 Assistance with Respiratory Ventilation, Less than 24 Consecutive Hours, Continuous Positive Airway Pressure (ICD-10-PCS; 2022-01-25)
PROC: 5A09357 Assistance with Respiratory Ventilation, Less than 24 Consecutive Hours, Continuous Positive Airway Pressure (ICD-10-PCS; 2022-01-26)
PROC: 5A09357 Assistance with Respiratory Ventilation, Less than 24 Consecutive Hours, Continuous Positive Airway Pressure (ICD-10-PCS; 2022-01-27)
PROC: 5A0945A Assistance with Respiratory Ventilation, 24-96 Consecutive Hours, High Flow/Velocity Cannula (ICD-10-PCS; 2022-01-27)
PROC: 5A09357 Assistance with Respiratory Ventilation, Less than 24 Consecutive Hours, Continuous Positive Airway Pressure (ICD-10-PCS; 2022-01-30)
PROC: 5A09357 Assistance with Respiratory Ventilation, Less than 24 Consecutive Hours, Continuous Positive Airway Pressure (ICD-10-PCS; 2022-01-31)
PROC: 5A09357 Assistance with Respiratory Ventilation, Less than 24 Consecutive Hours, Continuous Positive Airway Pressure (ICD-10-PCS; 2022-02-01)
PROC: 5A0935A Assistance with Respiratory Ventilation, Less than 24 Consecutive Hours, High Flow/Velocity Cannula (ICD-10-PCS; 2022-02-01)
PROC: 5A09357 Assistance with Respiratory Ventilation, Less than 24 Consecutive Hours, Continuous Positive Airway Pressure (ICD-10-PCS; 2022-02-02)
PROC: 5A0935A Assistance with Respiratory Ventilation, Less than 24 Consecutive Hours, High Flow/Velocity Cannula (ICD-10-PCS; 2022-02-02)
PROC: 5A09357 Assistance with Respiratory Ventilation, Less than 24 Consecutive Hours, Continuous Positive Airway Pressure (ICD-10-PCS; 2022-02-03)
PROC: 5A0935A Assistance with Respiratory Ventilation, Less than 24 Consecutive Hours, High Flow/Velocity Cannula (ICD-10-PCS; 2022-02-03)
DX: U07.1 COVID-19 (principal); J15.1 Pneumonia due to Pseudomonas; J96.21 Acute and chronic respiratory failure with hypoxia; J96.22 Acute and chronic respiratory failure with hypercapnia; R65.11 Systemic inflammatory response syndrome (SIRS) of non-infectious origin with acute organ dysfunction; N17.9 Acute kidney failure, unspecified; E66.01 Morbid (severe) obesity due to excess calories; F15.90 Other stimulant use, unspecified, uncomplicated; I50.9 Heart failure, unspecified; J44.9 Chronic obstructive pulmonary disease, unspecified; F41.9 Anxiety disorder, unspecified; K21.9 Gastro-esophageal reflux disease without esophagitis; Z20.822 Contact with and (suspected) exposure to COVID-19; T50.2X5A Adverse effect of carbonic-anhydrase inhibitors, benzothiadiazides and other diuretics, initial encounter; I27.81 Cor pulmonale (chronic); G47.00 Insomnia, unspecified; Z79.01 Long term (current) use of anticoagulants; Z79.899 Other long term (current) drug therapy; Z82.5 Family history of asthma and other chronic lower respiratory diseases; Z87.01 Personal history of pneumonia (recurrent); Z87.891 Personal history of nicotine dependence; Z88.0 Allergy status to penicillin; Z88.1 Allergy status to other antibiotic agents; Y92.89 Other specified places as the place of occurrence of the external cause; Z56.0 Unemployment, unspecified; Z68.39 Body mass index [BMI] 39.0-39.9, adult
CPT/HCPCS: 36415; 36600; 71045; 80048; 80053; 82728; 82803; 83605; 83615; 83880; 84145; 84484; 85007; 85018; 85025; 85379; 85610; 86140; 87040; 87070; 87077; 87081; 87186; 93005; 94640; 94660; 94664; 94668; 94760; 96374; 99285; A4615; A4620; G0378; J0696; J1100; J1650; J1940; J2060; J3490; J7040; J7060; Q0177